=== PATIENT | female | born 1995 | race African-American/Black ===

== ENCOUNTER 2021-03-18 12:40 | Outpatient (RCR) | payer OTHER, SELFPAY ==
[2021-03-16] MEDS: RHO(D) IMMUNE GLOBULIN 300 MCG/2 ML SYRINGE IM (16:37)
== END 2021-06-14 23:59 | disposition home or self-care (01) ==
LOC: ANHLAB 12:40
PROVIDERS: PCP Family Medicine; Visit Provider Obstetrics & Gynecology
DX: Z29.13 Encounter for prophylactic Rho(D) immune globulin (principal); O36.0130 Maternal care for anti-D [Rh] antibodies, third trimester, not applicable or unspecified; O20.0 Threatened abortion; Z3A.00 Weeks of gestation of pregnancy not specified
CPT/HCPCS: 36415; 84702; 85461; 86850; 86880; 86900; 86901; 86902; 90384; 96372; J2790

== ENCOUNTER 2021-04-12 19:18 | Emergency (ER) | payer OTHER, SELFPAY ==
[2021-04-12 19:20] VITALS: BP 139/80; PULSE 121; RESP 18; TEMP 36.1; O2SAT 98
[2021-04-12 19:39] LABS: Basophils Percent Auto 0.8 % (0.2-1.2); Eosinophils Percent Auto 0.5 % (0-4.4); Hematocrit 35.9 % (37.0-47.0); Hemoglobin 12.4 g/dL (12.0-15.0); Immature Granulocyte Absolute 0.02 K/mm3 (0.00-0.031); Immature Granulocyte Percent A 0.5 % (0-0.5); Lymphocytes Absolute Auto 0.78 K/mm3 (0.9-3.2); Lymphocytes Percent Auto 21.4 % (18.3-44.2); Mean Corpuscular HGB Conc 34.5 g/dl (32-36); Mean Corpuscular Hemoglobin 31.3 pg (26-34); Mean Corpuscular Volume 90.7 fl (80-100); Monocytes Absolute Auto 0.3 K/mm3 (0.1-0.6); Monocytes Percent Auto 8.5 % (2.6-8.5); Neutrophils Absolute Auto 2.5 K/mm3 (1.3-6.7); Neutrophils Percent Auto 68.3 % (45.5-73.1); Platelet Count Result 191 k/mm3 (150-375); Red Blood Count 3.96 M/mm3 (4.2-5.4); Red Cell Distribution Width 13.8 % (11.5-14.5); White Blood Count 3.6 K/mm3 (4.5-10.0)
--- NOTE | 2021-04-12 19:46 | ED.GENADULT ---
HPI - General Adult General Chief complaint: Nausea/Vomiting/Diarrhea Stated complaint: , vomiting Time Seen by Provider: 04/12/21 19:31 Source: patient History of Present Illness HPI narrative: Patient is a 25 y/o female complaining of nausea and vomiting for last 4 weeks. She states that she is currently 9 week and she has been vomiting since when she was 5 week . She states that she vomited more than 10 times during the last 24 hours hours. She vomits up mostly yellowish and clear liquid. She was prescribed Reglan, Compazine, Zofran, Phenergan, etc and none of those seem to help. She also has mild epigastric abdominal pain. She has no lower abdominal pain or vaginal bleeding. She states that she had US in office recently and she was told that it was fine. Related Data Allergies Allergy/AdvReac Type Severity Reaction Status Date / Time No Known Allergies Allergy Verified 04/12/21 19:30 Review of Systems Constitutional: Constitutional: Denies chills, Denies fever(s), Denies headache(s) and Denies weakness Eyes: Eyes: Denies blurry vision ENT: Denies headache(s) and Denies neck pain Cardiovascular: Cardiovascular: Denies chest pain and Denies dyspnea Respiratory: Respiratory: Denies cough and Denies dyspnea Gastrointestinal: Gastrointestinal: Denies abdominal pain, Denies diarrhea, Reports nausea and Reports vomiting Genitourinary: Genitourinary: Denies hematuria and Denies dysuria Musculoskeletal: Musculoskeletal: Denies back pain and Denies neck pain Neurologic: Denies headache(s) and Denies weakness Exam Const: General: no acute distress and well developed Orientation/consciousness: oriented to person, oriented to place, oriented to time and patient oriented x3 HENMT: Head: normocephalic Ears: external ears normal General nose exam: Normal external nose present Eyes: General: appearance normal, both eyes and all related structures Conjunctivae: conjunctivae normal Neck: Neck: normal visual inspection and full ROM Chest: Chest palpation & inspection: normal inspection of the chest and no tenderness Resp: Effort & Inspection: normal respiratory effort Auscultation: clear to auscultation bilaterally Cardio: Rate: tachycardic Rhythm: regular rhythm GI: GI Palp: No abdominal tenderness and Yes Soft to palpation Skin: General skin exam: normal color and turgor normal Neuro: General: oriented to person, oriented to place, oriented to time and patient oriented x3 Cognition (Neuro): normal cognition Extrem: General: normal to inspection, full ROM and no pedal edema Psych: Appearance: grossly normal Mental Status: mental status grossly normal Affect: normal affect Course Reevaluation(s) Reevaluation #1: Patient feels better with no vomiting. Date: 04/12/21 Vital Signs Vital signs: Vital Signs Temperature 36.1 C L 04/12/21 19:20 Pulse Rate 121 H 04/12/21 19:20 Respiratory Rate 18 04/12/21 19:20 Blood Pressure 139/80 04/12/21 19:20 Pulse Oximetry 98 04/12/21 19:20 Temperature 36.1 C L 04/12/21 19:20 Pulse Rate 79 04/12/21 21:46 Respiratory Rate 16 04/12/21 21:46 Blood Pressure 122/67 04/12/21 21:46 Pulse Oximetry 100 04/12/21 21:46 Medical Decision Making Vital Signs Vital Signs: Vital Signs Temperature 36.1 C L 04/12/21 19:20 Pulse Rate 121 H 04/12/21 19:20 Respiratory Rate 18 04/12/21 19:20 Blood Pressure 139/80 04/12/21 19:20 Pulse Oximetry 98 04/12/21 19:20 Temperature 36.1 C L 04/12/21 19:20 Pulse Rate 79 04/12/21 21:46 Respiratory Rate 16 04/12/21 21:46 Blood Pressure 122/67 04/12/21 21:46 Pulse Oximetry 100 04/12/21 21:46 Lab Data Result diagrams: 04/12/21 19:33 04/12/21 19:33 Labs: Lab Results 04/12/21 04/12/21 04/12/21 Range/Units 19:33 19:33 19:40 WBC 3.6 L (4.5-10.0) K/mm3 RBC 3.96 L (4.2-5.4) M/mm3 Hgb 12.4 (12.0-15.0) g/dL Hct
[2021-04-12] MEDS: SODIUM CHLORIDE 0.9% IV 1,000 ML 999 ML IV CONT (19:49)
[2021-04-12] MEDS: METOCLOPRAMIDE HCL INJ 10 MG/2 ML VIAL IV PUSH (19:50)
[2021-04-12 19:52] LABS: Add Urine Microscopic? YES; Appearance Urine Cloudy (Clear); Bacteria Urine Trace /hpf; Bilirubin Urine 1+ (Negative); Color Urine Amber (Yellow); Glucose Urine UA Negative (Negative); Ketones Urine 2+ mg/dL (Negative); Leukocyte Esterase Ur 2+ LEU/UL (Negative); Mucus Urine Heavy /lpf; Nitrate Urine Negative (Negative); Protein Urine 2+ mg/dL (Negative); Squamous Epithelial Cell Urine Many /hpf (Few); WBC Urine 16-20 /hpf
[2021-04-12 19:54] VITALS: BP 121/55; PULSE 77
[2021-04-12 19:54] LABS: Alanine Aminotransferase 66 U/L (4-35); Albumin Level 4.6 g/dL (3.5-5.1); Alkaline Phosphatase 76 U/L (38-126); Anion Gap 13 mmol/L (8-16); Aspartate Amino Transferase 66 U/L (14-36); Bilirubin,Total 0.6 mg/dL (0.2-1.3); Blood Urea Nitrogen 5 mg/dL (7-17); Calcium 9.8 mg/dL (8.4-10.2); Carbon Dioxide 24 mmol/L (22-30); Chloride 102 mmol/L (98-107); Estimated CRCL calculation 177 ml/min; Estimated Glomerular Filt Rate > 60; Glucose 100 mg/dL (65-105); Lipase 48 U/L (23-300); Potassium 3.5 mmol/L (3.4-5.0); Sodium 139 mmol/L (137-145)
[2021-04-12 19:55] VITALS: BP 111/68; PULSE 61
[2021-04-12 19:57] VITALS: BP 105/79; PULSE 73
[2021-04-12 20:07] LABS: Blood Urine Negative (Negative); Specific Grav Ur 1.043 (1.001-1.035)
[2021-04-12 20:46] LABS: Amphetamine Screen Urine Negative (Negative); Barbiturate Screen Urine Negative (Negative); Benzodiazepines Screen Urine Negative (Negative); Cannabinoid Screen Urine Positive (Negative); Cocaine Screen Urine Negative (Negative); Methadone Screen Urine Negative (Negative); Opiate Screen Urine Negative (Negative); Phencyclidine Screen Urine Negative (Negative)
[2021-04-12 21:11] VITALS: BP 113/87; PULSE 84; RESP 18; O2SAT 100
[2021-04-12 21:46] VITALS: BP 122/67; PULSE 79; RESP 16; O2SAT 100
== END 2021-04-12 21:46 | disposition home or self-care (01) ==
PROVIDERS: Emergency Provider Emergency Medicine; PCP Family Medicine
DX: O21.0 Mild hyperemesis gravidarum (principal); Z3A.01 Less than 8 weeks gestation of pregnancy
CPT/HCPCS: 36415; 80053; 80307; 81001; 81025; 83690; 85025; 87086; 87088; 96361; 96374; 99284; J2765; J7030

== ENCOUNTER 2021-04-14 16:13 | Observation (INO) | payer OTHER, SELFPAY ==
[2021-04-14 16:46] VITALS: BP 110/48; PULSE 75
[2021-04-14] MEDS: DEXTROSE 5%/LACTATED RINGERS 1,000 ML 999 ML IV CONT (17:08)
[2021-04-14] MEDS: PROMETHAZINE HCL 25 MG/ML AMPUL 12.5 MG IV PUSH ×2 (17:08→21:06)
[2021-04-14] MEDS: PANTOPRAZOLE SODIUM IV 40 MG VIAL IV PUSH (18:28)
[2021-04-14] MEDS: DEXTROSE 5%/LACTATED RINGERS 1,000 ML 200 ML IV CONT ×2 (18:28→23:50)
[2021-04-14 18:31] VITALS: BP 120/60; PULSE 77
--- NOTE | 2021-04-14 18:35 | OBADM ---
This patient, Tristan Ferrari, admitted to the OB room OB Post 117 for observation. Patient/family oriented to hospital policies and general routines including ID bracelet, bed and alarms, visiting hours, pain management, procedures, bathroom and other care routines, personal items, smoking policy, room service/diet, and visiting hours. Patient/Family are encouraged to report perceived risks to care and to ask questions if they do not understand what they are told or what they should do.
[2021-04-14 19:07] VITALS: PULSE 76; O2SAT 97
[2021-04-14 19:09] VITALS: TEMP 37.1
[2021-04-14 19:10] VITALS: RESP 16
[2021-04-14 21:16] VITALS: BMI 38.5
[2021-04-14 22:40] VITALS: RESP 16
[2021-04-14] MEDS: ACETAMINOPHEN 500 MG TABLET 1000 MG PO (23:49)
[2021-04-15] VITALS (11 sets, daily range): BP systolic 102–117; BP diastolic 29–65; PULSE 69–98; RESP 16–18; TEMP 36.2–36.8; O2SAT 98–100
[2021-04-15] MEDS: PROMETHAZINE HCL 25 MG/ML AMPUL 12.5 MG IV PUSH ×4 (01:07→22:45)
[2021-04-15] MEDS: PANTOPRAZOLE SODIUM IV 40 MG VIAL IV PUSH ×2 (08:47→21:08)
[2021-04-15] MEDS: DEXTROSE 5%/LACTATED RINGERS 1,000 ML 200 ML IV CONT ×3 (10:57→23:48)
[2021-04-15] MEDS: ACETAMINOPHEN 500 MG TABLET 1000 MG PO (10:59)
--- NOTE | 2021-04-15 11:10 | PC.NURSE ---
Dr. Bustamante on unit and informed pt has had some cereal and juice today, nausea but no emesis. Discussed pt's last urine was still tea colored and getting D5LR at 200 ml/hr. Pt on Phenergan and Protonix.
--- NOTE | 2021-04-15 15:09 | PC.NURSE ---
Pt wanted to try ordering food. Initially she wanted tuna salad. Discussed food choices that would be good to try- applesauce, scrambled eggs, filipino toast, pancakes, grilled chicken, mashed potatoes. Pt wants to order a turkey sandwich. Informed pt to just nibble at it.
--- NOTE | 2021-04-15 16:11 | PM.IMHP ---
H&P: HPI History of Present Illness Date/Time: 04/15/21 16:11 Chief Complaint: pt here with complaints of nausea and vomiting at 9 weeks gestation , no hx of hyperemesis Review of Systems Review of Systems: All systems reviewed & are unremarkable except as noted in HPI and below Meds Home Medications and Allergies Allergies Allergy/AdvReac Type Severity Reaction Status Date / Time No Known Allergies Allergy Verified 04/12/21 19:30 Vital Signs Vital Signs - 24 hr 04/14/21 16:46 04/14/21 18:31 04/14/21 19:07 Temperature Pulse Rate 75 77 76 Respiratory Rate Blood Pressure 110/48 L 120/60 Pulse Oximetry 97 04/14/21 19:09 04/14/21 19:10 04/14/21 22:40 Temperature 37.1 C Pulse Rate Respiratory Rate 16 16 Blood Pressure Pulse Oximetry 04/15/21 08:31 04/15/21 08:32 04/15/21 11:03 Temperature Pulse Rate 72 72 81 Respiratory Rate Blood Pressure 107/52 L 105/49 L 106/49 L Pulse Oximetry 04/15/21 15:08 04/15/21 15:09 Temperature Pulse Rate 69 71 Respiratory Rate Blood Pressure 111/29 L 102/65 Pulse Oximetry Exam Const: General: cooperative Limitations: no limitations Psych: Affect: normal affect Attitude: cooperative Thought content: Yes Normal thought content present Assessment and Plan Additional Plan 1. hyperemesis continue to manage nausea/vomiting, labs drawn, plan discharge if able to tolerate po fluids
[2021-04-15] MEDS: ONDANSETRON INJ 4 MG/2 ML VIAL IV PUSH (16:55)
[2021-04-15 17:03] LABS: Basophils Percent Auto 0.8 % (0.2-1.2); Eosinophils Percent Auto 0.4 % (0-4.4); Hematocrit 30.7 % (37.0-47.0); Hemoglobin 10.4 g/dL (12.0-15.0); Immature Granulocyte Absolute 0.01 K/mm3 (0.00-0.031); Immature Granulocyte Percent A 0.4 % (0-0.5); Lymphocytes Absolute Auto 0.92 K/mm3 (0.9-3.2); Lymphocytes Percent Auto 38.2 % (18.3-44.2); Mean Corpuscular HGB Conc 33.9 g/dl (32-36); Mean Corpuscular Hemoglobin 30.7 pg (26-34); Mean Corpuscular Volume 90.6 fl (80-100); Mean Platelet Volume 10.9 fl (7.4-10.4); Monocytes Absolute Auto 0.5 K/mm3 (0.1-0.6); Monocytes Percent Auto 18.7 % (2.6-8.5); Neutrophils Percent Auto 41.5 % (45.5-73.1); Platelet Count Result 141 k/mm3 (150-375); Red Blood Count 3.39 M/mm3 (4.2-5.4); Red Cell Distribution Width 13.2 % (11.5-14.5); White Blood Count 2.4 K/mm3 (4.5-10.0)
[2021-04-15 17:12] LABS: Alanine Aminotransferase 56 U/L (4-35); Albumin Level 3.4 g/dL (3.5-5.1); Alkaline Phosphatase 60 U/L (38-126); Anion Gap 8 mmol/L (8-16); Aspartate Amino Transferase 58 U/L (14-36); Bilirubin,Total 0.3 mg/dL (0.2-1.3); Blood Urea Nitrogen 2 mg/dL (7-17); Carbon Dioxide 23 mmol/L (22-30); Chloride 108 mmol/L (98-107); Estimated CRCL calculation 206 ml/min; Estimated Glomerular Filt Rate > 60; Glucose 116 mg/dL (65-105); Potassium 3.4 mmol/L (3.4-5.0); Sodium 139 mmol/L (137-145)
--- NOTE | 2021-04-15 17:44 | PC.NURSE ---
Jhony Buckley CNM informed of CBC and CMP results. CNM wants pt to stay overnight and repeat labs in am.
--- NOTE | 2021-04-15 22:10 | PC.NURSE ---
2210 - pt requesting to get in the shower. IV saline locked and covered with plastic/taped down. Towels, gown, socks, and toiletries given. Pt will call out when finished.
--- NOTE | 2021-04-16 00:46 | PC.NURSE ---
2245 - pt requested and given 2 bowls of cheerios and milk.
--- NOTE | 2021-04-16 00:47 | PC.NURSE ---
2350 - pt states she has a slight headache, but declines pain medicine at this time. Pt states she is sleepy and will call out with any needs.
[2021-04-16] MEDS: DEXTROSE 5%/LACTATED RINGERS 1,000 ML 200 ML IV CONT (05:00)
[2021-04-16 05:02] VITALS: PULSE 82; O2SAT 100
[2021-04-16 05:04] VITALS: BP 109/41; PULSE 75
[2021-04-16 05:10] VITALS: RESP 18; TEMP 36.7
[2021-04-16 05:26] LABS: Basophils Percent Auto 0.9 % (0.2-1.2); Eosinophils Percent Auto 0.6 % (0-4.4); Hematocrit 27.6 % (37.0-47.0); Hemoglobin 9.4 g/dL (12.0-15.0); Immature Granulocyte Absolute 0.01 K/mm3 (0.00-0.031); Immature Granulocyte Percent A 0.3 % (0-0.5); Lymphocytes Absolute Auto 1.33 K/mm3 (0.9-3.2); Lymphocytes Percent Auto 42.1 % (18.3-44.2); Mean Corpuscular HGB Conc 34.1 g/dl (32-36); Mean Corpuscular Hemoglobin 32.2 pg (26-34); Mean Corpuscular Volume 94.5 fl (80-100); Mean Platelet Volume 10.9 fl (7.4-10.4); Monocytes Absolute Auto 0.7 K/mm3 (0.1-0.6); Monocytes Percent Auto 20.9 % (2.6-8.5); Neutrophils Absolute Auto 1.1 K/mm3 (1.3-6.7); Neutrophils Percent Auto 35.2 % (45.5-73.1); Platelet Count Result 143 k/mm3 (150-375); Red Blood Count 2.92 M/mm3 (4.2-5.4); Red Cell Distribution Width 14.4 % (11.5-14.5); White Blood Count 3.2 K/mm3 (4.5-10.0)
[2021-04-16 05:47] LABS: Alanine Aminotransferase 55 U/L (4-35); Albumin Level 3.1 g/dL (3.5-5.1); Alkaline Phosphatase 54 U/L (38-126); Anion Gap 7 mmol/L (8-16); Aspartate Amino Transferase 54 U/L (14-36); Bilirubin,Total 0.1 mg/dL (0.2-1.3); Blood Urea Nitrogen 2 mg/dL (7-17); Calcium 8.7 mg/dL (8.4-10.2); Carbon Dioxide 24 mmol/L (22-30); Chloride 106 mmol/L (98-107); Estimated CRCL calculation 170 ml/min; Estimated Glomerular Filt Rate > 60; Glucose 94 mg/dL (65-105); Potassium 3.6 mmol/L (3.4-5.0); Sodium 137 mmol/L (137-145)
[2021-04-16 07:06] VITALS: BP 106/40; PULSE 70
[2021-04-16] MEDS: ACETAMINOPHEN 500 MG TABLET 1000 MG PO (07:07)
[2021-04-16] MEDS: PROMETHAZINE HCL 25 MG/ML AMPUL 12.5 MG IV PUSH (07:16)
--- NOTE | 2021-04-16 07:57 | PM.OBPNLAB ---
Pain Control Date/time seen: 04/16/21 07:57 pt feeling better this am, elevated liver enzymes, stable VSS plan discharge home f/u one week in office
--- NOTE | 2021-04-16 08:07 | PM.OBTRLD ---
OB - Triage/Final Diagnosis Visit Information Date of evaluation: 04/15/21 Reason for evaluation: other (hyperemesis) Comments/Additional reasons for admission: I have assessed the risk for this patient, Tristan Ferrari, and determined that she would benefit from observation care. Evaluation Laboratory results: Laboratory Tests 04/15/21 04/15/21 04/16/21 16:53 16:53 05:08 WBC 2.4 L 3.2 L RBC 3.39 L 2.92 L Hgb 10.4 L 9.4 L Hct 30.7 L 27.6 L MCV 90.6 94.5 MCH 30.7 32.2 MCHC 33.9 34.1 RDW 13.2 14.4 Plt Count 141 L 143 L MPV 10.9 H 10.9 H Immature Gran % (Auto) 0.4 0.3 Neut % (Auto) 41.5 L 35.2 L Lymph % (Auto) 38.[address] [place] % (Auto) 18.7 H 20.9 H Eos % (Auto) 0.4 0.6 Baso % (Auto) 0.8 0.9 Lymph # (Auto) 0.[address] [place] # (Auto) 0.5 0.7 H Eos # (Auto) 0.0 0.0 Baso # (Auto) 0.0 0.0 Abs Immat Gran (auto) 0.01 0.01 Absolute Neuts (auto) 1.0 L 1.1 L Absolute Nucleated RBC 0.0 0.0 Nucleated RBC % 0.0 0.0 Sodium 139 Potassium 3.4 Chloride 108 H Carbon Dioxide 23 Anion Gap 8 BUN 2 L Creatinine 0.40 L Estim Creat Clear Calc 206 Estimated GFR > 60 Glucose 116 H Calcium 9.0 Total Bilirubin 0.3 AST 58 H ALT 56 H Alkaline Phosphatase 60 Total Protein 7.0 Albumin 3.4 L 04/16/21 05:08 WBC RBC Hgb Hct MCV MCH MCHC RDW Plt Count MPV Immature Gran % (Auto) Neut % (Auto) Lymph % (Auto) [place] % (Auto) Eos % (Auto) Baso % (Auto) Lymph # (Auto) [place] # (Auto) Eos # (Auto) Baso # (Auto) Abs Immat Gran (auto) Absolute Neuts (auto) Absolute Nucleated RBC Nucleated RBC % Sodium 137 Potassium 3.6 Chloride 106 Carbon Dioxide 24 Anion Gap 7 L BUN 2 L Creatinine 0.50 L Estim Creat Clear Calc 170 Estimated GFR > 60 Glucose 94 Calcium 8.7 Total Bilirubin 0.1 L AST 54 H ALT 55 H Alkaline Phosphatase 54 Total Protein 6.0 L Albumin 3.1 L Vital signs: Vital Signs - 24 hr 04/15/21 08:31 04/15/21 08:32 04/15/21 11:02 Temperature 36.2 C L 36.8 C Pulse Rate 72 72 81 Respiratory Rate 16 Blood Pressure 107/52 L 105/49 L 106/49 L Pulse Oximetry 04/15/21 11:03 04/15/21 15:08 04/15/21 15:09 Temperature 36.2 C L Pulse Rate 81 69 71 Respiratory Rate 16 Blood Pressure 106/49 L 111/29 L 102/65 Pulse Oximetry 04/15/21 20:25 04/15/21 20:26 04/15/21 20:27 Temperature 36.7 C Pulse Rate 97 95 95 Respiratory Rate 18 Blood Pressure 111/54 L 117/34 L 111/54 L Pulse Oximetry 100 99 04/15/21 23:44 04/15/21 23:48 04/16/21 05:02 Temperature 36.7 C Pulse Rate 85 Respiratory Rate 18 Blood Pressure 113/51 L Pulse Oximetry 98 100 04/16/21 05:04 04/16/21 05:10 04/16/21 07:06 Temperature 36.7 C Pulse Rate 75 70 Respiratory Rate 18 Blood Pressure 109/41 L 106/40 L Pulse Oximetry
== END 2021-04-16 10:55 | disposition home or self-care (01) ==
PROVIDERS: Advanced Practice Midwife; Admitting Provider Obstetrics & Gynecology; PCP Family Medicine; Visit Provider Obstetrics & Gynecology
DX: O21.0 Mild hyperemesis gravidarum (principal); Z3A.09 9 weeks gestation of pregnancy
CPT/HCPCS: 36415; 80053; 85025; 96361; 96374; 96375; 96376; A9270; C9113; G0378; G0379; J2405; J2550; J7121

== ENCOUNTER 2021-05-02 18:00 | Observation (INO) | payer OTHER, SELFPAY ==
[2021-05-02 18:18] VITALS: BP 109/54; PULSE 88
[2021-05-02 18:22] VITALS: BMI 39.2
--- NOTE | 2021-05-02 18:24 | OBADM ---
This patient, Tristan Ferrari, admitted to the OB room OB Post 116 for observation. Patient/family oriented to hospital policies and general routines including ID bracelet, bed and alarms, visiting hours, pain management, procedures, bathroom and other care routines, personal items, smoking policy, room service/diet, and visiting hours. Patient/Family are encouraged to report perceived risks to care and to ask questions if they do not understand what they are told or what they should do.
[2021-05-02 18:28] VITALS: TEMP 36.7
[2021-05-02] MEDS: LACTATED RINGERS 1,000 ML 999 ML IV CONT (19:04)
[2021-05-02] MEDS: PROMETHAZINE HCL 12.5 MG SUPP.RECT RECTAL ×2 (19:05→23:20)
[2021-05-02] MEDS: FAMOTIDINE 20 MG/2 ML VIAL IV PUSH (19:12)
[2021-05-02 19:36] LABS: Add Urine Microscopic? YES; Appearance Urine Cloudy (Clear); Bacteria Urine Trace /hpf; Bilirubin Urine Negative (Negative); Color Urine Amber (Yellow); Glucose Urine UA Negative (Negative); Ketones Urine Trace mg/dL (Negative); Leukocyte Esterase Ur Negative LEU/UL (Negative); Mucus Urine Heavy /lpf; Nitrate Urine Negative (Negative); Protein Urine 2+ mg/dL (Negative); Specific Grav Ur 1.027 (1.001-1.035); Squamous Epithelial Cell Urine Many /hpf (Few)
[2021-05-02 19:45] LABS: Blood Urine Negative (Negative)
[2021-05-02 19:49] VITALS: PULSE 88; RESP 18; TEMP 36.7; O2SAT 97
[2021-05-02 20:00] VITALS: RESP 18; TEMP 36.7
[2021-05-02] MEDS: ONDANSETRON INJ 4 MG/2 ML VIAL IV PUSH (22:10)
[2021-05-03 00:01] VITALS: RESP 18; TEMP 36.9
[2021-05-03] MEDS: ONDANSETRON INJ 4 MG/2 ML VIAL IV PUSH ×2 (02:03→05:45)
[2021-05-03 04:00] VITALS: RESP 16; TEMP 36.9
[2021-05-03 04:01] VITALS: BP 104/45; PULSE 80
[2021-05-03 07:30] VITALS: TEMP 36.8
[2021-05-03 07:32] VITALS: BP 120/66; PULSE 87
--- NOTE | 2021-05-03 07:45 | PC.NURSE ---
Addendum entered by Halie Bejarano RN 05/03/21 08:21: Orders to discharge patient due to nausea subsiding. Patient will keep office appointment this week to discuss further treatment if needed. Original Note: COLLINS Esparza with patient this morning.
--- NOTE | 2021-05-03 07:50 | WPDOBADMIT ---
Obstetrics - Admit Note Admission Note: 25 y/o @ 12w3d here with nausea and vomiting in . record reviewed. No pertinent additions to the history and/or any subsequent changes in the physical findings that are not consistent with the expected course of the were found. Additions to the history and/or subsequent changes in the physical findings follow. None.
--- NOTE | 2021-05-03 07:51 | PM.OBPNLAB ---
Pain Control Date/time seen: 05/03/21 07:51 Improvement of symptoms with phenergan suppository and zofran. Pt has been able to hold down liquids and solids this am and desires discharge to home. Will send rx for phenergan. Pt already has zofran. Plan to follow up in the office this week.
== END 2021-05-03 08:19 | disposition home or self-care (01) ==
PROVIDERS: Advanced Practice Midwife; Admitting Provider Obstetrics & Gynecology; PCP Family Medicine; Visit Provider Obstetrics & Gynecology
DX: O21.0 Mild hyperemesis gravidarum (principal); Z3A.12 12 weeks gestation of pregnancy
CPT/HCPCS: 81001; 87086; 96361; 96374; 96375; 96376; A9270; G0378; G0379; J2405; J7120

== ENCOUNTER 2021-05-19 18:24 | Observation (INO) | payer OTHER, SELFPAY ==
[2021-05-19 19:00] VITALS: RESP 18; TEMP 36.4
[2021-05-19] MEDS: DEXTROSE 5%/LACTATED RINGERS 1,000 ML 999 ML IV CONT (19:04)
[2021-05-19] MEDS: ONDANSETRON INJ 4 MG/2 ML VIAL 8 MG IV PUSH (19:04)
[2021-05-19 19:09] LABS: Basophils Percent Auto 0.6 % (0.2-1.2); Eosinophils Percent Auto 0.3 % (0-4.4); Hematocrit 30.1 % (37.0-47.0); Hemoglobin 10.8 g/dL (12.0-15.0); Immature Granulocyte Absolute 0.03 K/mm3 (0.00-0.031); Immature Granulocyte Percent A 0.5 % (0-0.5); Lymphocytes Absolute Auto 1.44 K/mm3 (0.9-3.2); Lymphocytes Percent Auto 21.7 % (18.3-44.2); Mean Corpuscular HGB Conc 35.9 g/dl (32-36); Mean Corpuscular Hemoglobin 32.6 pg (26-34); Mean Corpuscular Volume 90.9 fl (80-100); Mean Platelet Volume 11.3 fl (7.4-10.4); Monocytes Absolute Auto 0.6 K/mm3 (0.1-0.6); Monocytes Percent Auto 8.9 % (2.6-8.5); Neutrophils Absolute Auto 4.5 K/mm3 (1.3-6.7); Platelet Count Result 229 k/mm3 (150-375); Red Blood Count 3.31 M/mm3 (4.2-5.4); Red Cell Distribution Width 14.3 % (11.5-14.5); White Blood Count 6.6 K/mm3 (4.5-10.0)
[2021-05-19 19:11] VITALS: BP 113/42; PULSE 80
[2021-05-19 19:13] VITALS: BP 96/60; PULSE 80
[2021-05-19 19:15] LABS: Alanine Aminotransferase 27 U/L (4-35); Albumin Level 4.1 g/dL (3.5-5.1); Alkaline Phosphatase 71 U/L (38-126); Anion Gap 10 mmol/L (8-16); Aspartate Amino Transferase 33 U/L (14-36); Bilirubin,Total 0.3 mg/dL (0.2-1.3); Blood Urea Nitrogen 7 mg/dL (7-17); Calcium 9.6 mg/dL (8.4-10.2); Carbon Dioxide 20 mmol/L (22-30); Chloride 105 mmol/L (98-107); Estimated Glomerular Filt Rate > 60; Glucose 101 mg/dL (65-105); Potassium 3.7 mmol/L (3.4-5.0); Sodium 135 mmol/L (137-145)
[2021-05-19 20:23] VITALS: BMI 37.2
--- NOTE | 2021-05-19 20:53 | PC.NURSE ---
2035 - IV line d/c. [facility]
--- NOTE | 2021-05-19 20:58 | PC.NURSE ---
2039 - pt states she is feeling much better, but states she has a headache. Pt refusing medication, and second bag of D5LR. pt states she wants to go home and lay down. Pt tearful and states she is ready to feel better, just wants to eat food. Pt states she feeling down, but has a good support system at home. Pt educated on our resources, declines needing any assistance at this time. Pt states she is not taking her nausea medication as prescribed, does not like the side effects they give her. Pt encouraged to call Dr Bustamante in the morning to discuss possible medication options.
--- NOTE | 2021-05-19 21:06 | PC.NURSE ---
1944 - pt states she is already feeling a little better, and would like broth & crackers
--- NOTE | 2021-05-19 21:07 | PC.NURSE ---
1954 - hot tea and crackers given. pt eating well.
--- NOTE | 2021-06-13 19:35 | P.PNOB_ITS ---
OB - Triage/Final Diagnosis Visit Information Comments/Additional reasons for admission: I have assessed the risk for this patient, Tristan Ferrari, and determined that she would benefit from observation care. Evaluation Laboratory results: Laboratory Tests 05/19/21 05/19/21 18:57 18:57 WBC 6.6 RBC 3.31 L Hgb 10.8 L Hct 30.1 L MCV 90.9 MCH 32.6 MCHC 35.9 RDW 14.3 Plt Count 229 D MPV 11.3 H Immature Gran % (Auto) 0.5 Neut % (Auto) 68.0 Lymph % (Auto) 21.7 [place] % (Auto) 8.9 H Eos % (Auto) 0.3 Baso % (Auto) 0.6 Lymph # (Auto) 1.44 [place] # (Auto) 0.6 Eos # (Auto) 0.0 Baso # (Auto) 0.0 Abs Immat Gran (auto) 0.03 Absolute Neuts (auto) 4.5 Absolute Nucleated RBC 0.0 Nucleated RBC % 0.0 Sodium 135 L Potassium 3.7 Chloride 105 Carbon Dioxide 20 L Anion Gap 10 BUN 7 D Creatinine 0.40 L Estim Creat Clear Calc Not Reportable Estimated GFR > 60 Glucose 101 Calcium 9.6 Total Bilirubin 0.3 AST 33 ALT 27 Alkaline Phosphatase 71 Total Protein 8.0 Albumin 4.1 Final Diagnosis (1) Nausea/vomiting in : Code(s): O21.9 - Vomiting of , unspecified Status: Acute
== END 2021-05-19 20:50 | disposition home or self-care (01) ==
PROVIDERS: Admitting Provider Obstetrics & Gynecology; PCP Family Medicine; Visit Provider Obstetrics & Gynecology
DX: O21.9 Vomiting of pregnancy, unspecified (principal); Z3A.14 14 weeks gestation of pregnancy
CPT/HCPCS: 36415; 80053; 85025; 96374; G0378; G0379; J2405; J7121

== ENCOUNTER 2021-06-02 07:41 | Outpatient (CLI) | payer OTHER, SELFPAY ==
[2021-06-02 08:00] VITALS: BMI 37.5
[2021-06-02 08:05] VITALS: BP 126/75; PULSE 90; RESP 14; TEMP 36.7; O2SAT 97
--- NOTE | 2021-06-02 09:12 | PC.NURSE ---
0755 Patient ambulatory with steady gait to treatment room for o/p picc line insertion due to hyperemesis. Patient is A & O x3.
--- NOTE | 2021-06-02 09:29 | PC.NURSE ---
0905 Patient discharged ambulatory without complaints after left basilic picc line insertion.
== END 2021-06-02 07:42 | disposition home or self-care (01) ==
LOC: ANHVASCINF 07:43
PROVIDERS: PCP Family Medicine; Visit Provider Obstetrics & Gynecology
DX: D21.0 Benign neoplasm of connective and other soft tissue of head, face and neck (principal)
CPT/HCPCS: 36569; C1751

== ENCOUNTER 2021-06-02 18:55 | Emergency (ER) | payer OTHER, SELFPAY ==
--- NOTE | 2021-06-02 19:14 | PC.NURSE ---
pt up to desk stating she will just wait to see Dr. Bustamante and my home health nurse tomorrow
== END 2021-06-02 19:31 | disposition left against medical advice (07) ==
LOC: ANHED 19:26
DX: Z53.21 Procedure and treatment not carried out due to patient leaving prior to being seen by health care provider (principal)
CPT/HCPCS: 99199

== ENCOUNTER 2021-06-03 22:52 | Observation (INO) | payer OTHER, SELFPAY ==
[2021-06-03 23:03] VITALS: BMI 38.3
[2021-06-03 23:09] VITALS: RESP 20; TEMP 36.6
[2021-06-03 23:15] VITALS: BP 119/65; PULSE 80
--- NOTE | 2021-06-03 23:21 | PC.NURSE ---
pt states she has had hyperemesis since 6 weeks, n/v worse today. pt states she has not felt movements for past 2 days. pt was seen in office today by dr. stephens. pt denies bleeding or leaking fluid.
--- NOTE | 2021-06-03 23:23 | PC.NURSE ---
pt has PICC line in left upper arm that was placed on 06/02/21.
[2021-06-04] MEDS: DEXTROSE 5%/LACTATED RINGERS 1,000 ML 150 ML IV CONT ×3 (00:19→13:09)
[2021-06-04] MEDS: ONDANSETRON INJ 4 MG/2 ML VIAL 8 MG IV PUSH (00:21)
[2021-06-04] MEDS: FAMOTIDINE 20 MG/2 ML VIAL IV PUSH (00:21)
[2021-06-04] MEDS: ACETAMINOPHEN 500 MG TABLET 1000 MG PO ×2 (03:57→13:05)
[2021-06-04 10:00] VITALS: TEMP 37.3
[2021-06-04 10:56] VITALS: BP 123/63; PULSE 91
[2021-06-04 11:01] VITALS: BP 104/47; PULSE 77
[2021-06-04 11:15] VITALS: BP 99/60; PULSE 73
[2021-06-04] MEDS: ONDANSETRON HCL ODT 4 MG TABLET PO (11:28)
[2021-06-04] MEDS: PANTOPRAZOLE 40 MG TABLET PO (11:47)
--- NOTE | 2021-06-04 12:00 | PC.NURSE ---
Patient states that she is feeling a little better. Tolerated chicken noodle soup, no vomiting.
--- NOTE | 2021-06-04 12:30 | PC.NURSE ---
Patient wanting a 3rd bag of fluid before she goes home. OK per Dr Bustamante.
--- NOTE | 2021-06-04 13:02 | PM.IMHP ---
H&P: HPI History of Present Illness Date/Time: 06/04/21 13:02 This patient is a 25-year-old multiparous female at 17 weeks gestation who presents for nausea vomiting of . She has hyperemesis gravidarum. She has a PICC line. She was not keeping fluids down for a couple of days and presented to Labor and delivery. We have been supporting her with fluids, antiemetics, and anything that she is able to take p.o.. She denies any cramping or vaginal bleeding. She denies any chest pain or shortness of breath. She denies any headaches or blurry vision. She denies any fevers or chills. Chief Complaint: Nausea and vomiting Review of Systems Constitutional: Constitutional: Reports no additional constitutional complaints, Denies fatigue, Denies headache(s), Denies lethargy and Denies weakness Eyes: Eyes: Reports no additional eye complaints, Denies blurry vision and Denies photophobia ENT: Reports as per HPI, Denies headache(s) and Denies neck pain Cardiovascular: Cardiovascular: Denies chest pain, Denies diaphoresis, Denies leg edema, Denies palpitations and Denies dyspnea Respiratory: Respiratory: Denies hemoptysis, Denies dyspnea and Denies wheezing Gastrointestinal: Gastrointestinal: Denies abdominal pain, Denies melena, Denies bloating, Denies hematochezia, Denies nausea and Denies vomiting Genitourinary: Genitourinary: Reports no additional female genitourinary complaints Musculoskeletal: Musculoskeletal: Denies joint swelling, Denies neck pain, Denies numbness and Denies stiffness Neurologic: Denies Abnormal speech present, Denies confusion, Denies headache(s), Denies numbness and Denies weakness Psychiatric: Psychiatric: Denies anxiety, Denies confusion, Denies depression, Denies homicidal ideation and Denies suicidal ideation Endocrine: Endocrine: Denies fatigue and Denies palpitations Allergic/Immunologic: Allergic/Immunologic: Denies wheezing Meds Home Medications and Allergies Home Medications Medication Instructions Recorded Confirmed Type PNV cmb#95-ferrous fumarate-FA 1 tablet PO DAILY 04/16/21 06/04/21 History [] albuterol sulfate [ProAir HFA] 90 mcg INHALATION PRN PRN 05/02/21 06/04/21 History famotidine [Pepcid AC] 10 mg PO DAILY 05/02/21 06/04/21 History Allergies Allergy/AdvReac Type Severity Reaction Status Date / Time No Known Allergies Allergy Verified 04/12/21 19:30 Vital Signs Vital Signs - 24 hr 06/03/21 23:09 06/03/21 23:15 06/04/21 10:56 Temperature 97.8 F Pulse Rate 80 91 Respiratory Rate 20 Blood Pressure 119/65 123/63 06/04/21 11:01 06/04/21 11:15 Temperature Pulse Rate 77 73 Respiratory Rate Blood Pressure 104/47 L 99/60 L Exam Const: General: healthy appearing, comfortable and no acute distress; No confusion Orientation/consciousness: No confusion Eyes: Direct Ophthalmoscopy: No photophobia Resp: Auscultation: clear to auscultation bilaterally, no rales, no rhonchi and no wheezes Cardio: Rate: regular rate Heart sounds: no click, no murmurs and no rubs GI: Inspection: non-distended GI Palp: No abdominal tenderness Auscultation: normal bowel sounds Neuro: General: No confusion Speech: No Abnormal speech present Extrem: General: normal to inspection, no pedal edema and no calf tenderness Assessment and Plan Assessment and plan (1) Second trimester : Code(s): Z34.92 - Encounter for supervision of normal , unspecified, second trimester Status: Acute (2) Hyperemesis: Code(s): R11.10 - Vomiting, unspecified Status: Acute Assessment and Plan: this patient is a 25 multiparous female at 17 weeks gestation with hyperemesis. She is admitted for intolerance of oral fluids. she is receiving IV fluids. She has a PICC line. She has began to tolerate some p.o. intake. We resumed her Proton pump niharika. She may be discharged shortly.
--- NOTE | 2021-06-04 16:15 | PC.NURSE ---
Patient ready to go home, states that she is only slightly nauseated. Patient has home health coming on Sunday for fluids and medication planning.
--- NOTE | 2021-06-04 16:30 | PC.NURSE ---
FHT's 135 per Doppler
== END 2021-06-04 16:42 | disposition home or self-care (01) ==
PROVIDERS: Admitting Provider Obstetrics & Gynecology; Visit Provider Obstetrics & Gynecology
DX: O21.0 Mild hyperemesis gravidarum (principal); Z3A.17 17 weeks gestation of pregnancy
CPT/HCPCS: 96361; 96374; 96375; A9270; G0378; G0379; J2405; J7121

== ENCOUNTER 2021-06-11 16:12 | Emergency (ER) | payer OTHER, SELFPAY ==
[2021-06-11 16:14] VITALS: BP 137/72; PULSE 105; RESP 20; TEMP 36.6; O2SAT 99
--- NOTE | 2021-06-11 17:43 | ECG_ITS ---
Measurements Intervals [place] Rate: 87 P: 55 MA: 149 QRS: 42 QRSD: 89 T: 42 QT: 372 QTc: 448 Interpretive Statements SINUS RHYTHM NORMAL ECG Electronically Signed On 06-11-2021 18:54:38 CDT by Didier Cuevas D.O.
--- NOTE | 2021-06-11 17:43 | ED.GENADULT ---
HPI - General Adult General Chief complaint: Unspecified Stated complaint: PICC LINE COMPLICATIONS Time Seen by Provider: 06/11/21 16:38 Source: patient Mode of arrival: ambulatory Limitations: no limitations History of Present Illness HPI narrative: Patient presents for evaluation of small amount of bleeding which is now controlled around the insertion site of her pack. She indicates she has a history of hyperemesis gravidarum for which she had PICC line placed. She states she has been able to tolerate oral intake and is hoping her PICC can be discontinued. She states her daughter slightly pulled out on her PICC line yesterday accidentally. PICC line dressing was in place. No significant amount of catheter was extracted from the insertion site. She states she has a history of migraines and has experienced a headache throughout most of her . She states headache is currently present, in the frontal region, described as splitting and rate 8/10 in severity. She has taken tylenol and fioricet for headaches but declines a desire to take any medication at this time. She reports some left-sided chest pressure for last 3 days which has been intermittent, not particularly bothersome, rated 4-10 in severity, which she attributes to indigestion. She has also recently experienced palpitations. Symptoms have been intermittent over the last three days, occurring approximately 2-3 times per day lasting a few minutes at a time. She denies any shortness of breath/cough. . Currently 18 weeks gestation, under care of Dr Bustamante. She has had confirmed IUP per US during this . She is currently on PPI for GERD. Related Data Home Medications Medication Instructions Recorded Confirmed PNV cmb#95-ferrous fumarate-FA 1 tablet PO DAILY 04/16/21 06/04/21 [] albuterol sulfate [ProAir HFA] 90 mcg INHALATION PRN PRN 05/02/21 06/04/21 famotidine [Pepcid AC] 10 mg PO DAILY 05/02/21 06/04/21 Allergies Allergy/AdvReac Type Severity Reaction Status Date / Time No Known Allergies Allergy Verified 04/12/21 19:30 Review of Systems Review of Systems: CONSTITUTIONAL: Denies fever, chills, or sweats. EYES: Denies visual changes, redness, or discharge. ENT: Denies rhinorrhea, congestion, sore throat, or otalgia. CARDIOVASCULAR: Reports palpitations over the last 3 days. Reports some left sided chest pressure. Denies edema. RESPIRATORY: Denies cough or dyspnea. GASTROINTESTINAL: Denies abdominal pain, nausea, vomiting, or diarrhea. GENITOURINARY: Denies dysuria or hematuria. SKIN: Reports a small amount of dried blood around the insertion site of her PICC line. Denies rash or itching. MUSCULOSKELETAL: Denies back pain, joint pain, or myalgia. NEUROLOGIC: Reports headache. Denies numbness, dizziness, or weakness. PSYCHIATRIC: Denies anxiety or depression. [facility] Past Medical History Medical History (Updated 06/11/21 @ 19:22 by Otilio Izquierdo, [employer], ) Hyperemesis gravidarum Surgical History Surgical History No pertinent past surgical history Family History Family History Mother No pertinent past medical history Social History Social History Smoking status: Never smoker Substance use: never Gender identity (if verbalized by the patient): Female Sexual Orientation (if Verbalized by the Patient): Straight or Heterosexual Spiritual care concerns: No Exam Narrative: GENERAL: Well-appearing, well-nourished, and in no acute distress. HEAD: Normocephalic, atraumatic. EYES: PERRLA and EOMI. ENT: Nares clear, no rhinorrhea or epistaxis. Mucous membranes moist. Oropharynx without tonsillar hypertrophy exudate or other lesions. Bilateral TMs pearly henriquez nonbulging NECK: Supple. No adenopathy or masses. No carotid bruits or JVD CHES
[2021-06-11] MEDS: FAMOTIDINE 20 MG TABLET PO (18:05)
[2021-06-11 18:29] LABS: Basophils Percent Auto 0.3 % (0.2-1.2); Eosinophils Percent Auto 0.5 % (0-4.4); Hematocrit 28.4 % (37.0-47.0); Hemoglobin 10.3 g/dL (12.0-15.0); Immature Granulocyte Absolute 0.03 K/mm3 (0.00-0.031); Immature Granulocyte Percent A 0.5 % (0-0.5); Lymphocytes Absolute Auto 1.16 K/mm3 (0.9-3.2); Lymphocytes Percent Auto 19.4 % (18.3-44.2); Mean Corpuscular HGB Conc 36.3 g/dl (32-36); Mean Corpuscular Hemoglobin 33.6 pg (26-34); Mean Corpuscular Volume 92.5 fl (80-100); Mean Platelet Volume 11.8 fl (7.4-10.4); Monocytes Absolute Auto 0.5 K/mm3 (0.1-0.6); Neutrophils Absolute Auto 4.2 K/mm3 (1.3-6.7); Neutrophils Percent Auto 70.3 % (45.5-73.1); Platelet Count Result 226 k/mm3 (150-375); Red Blood Count 3.07 M/mm3 (4.2-5.4)
[2021-06-11 18:42] LABS: Alanine Aminotransferase 23 U/L (4-35); Albumin Level 3.8 g/dL (3.5-5.1); Alkaline Phosphatase 73 U/L (38-126); Anion Gap 9 mmol/L (8-16); Aspartate Amino Transferase 28 U/L (14-36); Bilirubin,Total 0.5 mg/dL (0.2-1.3); Blood Urea Nitrogen 8 mg/dL (7-17); Calcium 8.6 mg/dL (8.4-10.2); Carbon Dioxide 20 mmol/L (22-30); Chloride 107 mmol/L (98-107); Estimated CRCL calculation 202 ml/min; Estimated Glomerular Filt Rate > 60; Glucose 89 mg/dL (65-110); Magnesium 1.8 mg/dL (1.6-2.3); Potassium 4.2 mmol/L (3.4-5.0); Sodium 136 mmol/L (137-145)
[2021-06-11 18:53] LABS: Troponin I < 0.012 ng/mL (0.000-0.034)
== END 2021-06-11 19:38 | disposition home or self-care (01) ==
PROVIDERS: Emergency Provider Nurse Practitioner; PCP Family Medicine
DX: O26.892 Other specified pregnancy related conditions, second trimester (principal); Z95.828 Presence of other vascular implants and grafts; R07.89 Other chest pain; R00.2 Palpitations; R51.9 Headache, unspecified; O21.0 Mild hyperemesis gravidarum; O99.612 Diseases of the digestive system complicating pregnancy, second trimester; K21.9 Gastro-esophageal reflux disease without esophagitis; Z3A.18 18 weeks gestation of pregnancy
CPT/HCPCS: 36415; 80053; 83735; 84484; 85025; 93005; 99284; A9270

== ENCOUNTER 2021-06-22 11:09 | Observation (INO) | payer OTHER, SELFPAY ==
[2021-06-22 11:09] VITALS: BMI 39.3
--- NOTE | 2021-06-22 11:10 | OBADM ---
This patient, Tristan Ferrari, admitted to the OB room OB Post 113 for observation. Patient/family oriented to hospital policies and general routines including ID bracelet, bed and alarms, visiting hours, pain management, procedures, bathroom and other care routines, personal items, smoking policy, room service/diet, and visiting hours. Patient/Family are encouraged to report perceived risks to care and to ask questions if they do not understand what they are told or what they should do.
[2021-06-22] MEDS: ONDANSETRON INJ 4 MG/2 ML VIAL 8 MG IV PUSH (12:19)
[2021-06-22] MEDS: DEXTROSE 5%/LACTATED RINGERS 1,000 ML 999 ML IV CONT (12:19)
[2021-06-22 12:33] LABS: Hematocrit 28.5 % (37.0-47.0); Hemoglobin 9.6 g/dL (12.0-15.0); Mean Corpuscular HGB Conc 33.7 g/dl (32-36); Mean Corpuscular Hemoglobin 31.4 pg (26-34); Mean Corpuscular Volume 93.1 fl (80-100); Mean Platelet Volume 11.4 fl (7.4-10.4); Platelet Count Result 173 k/mm3 (150-375); Red Blood Count 3.06 M/mm3 (4.2-5.4); Red Cell Distribution Width 14.1 % (11.5-14.5); White Blood Count 7.3 K/mm3 (4.5-10.0)
[2021-06-22 12:42] LABS: Add Urine Microscopic? YES; Appearance Urine Cloudy (Clear); Bacteria Urine Trace /hpf; Bilirubin Urine Negative (Negative); Blood Urine Negative (Negative); Color Urine Amber (Yellow); Glucose Urine UA Negative (Negative); Ketones Urine Negative (Negative); Leukocyte Esterase Ur Trace LEU/UL (NEGATIVE); Mucus Urine Heavy /lpf; Nitrate Urine Negative (Negative); Protein Urine 1+ mg/dL (Negative); Specific Grav Ur 1.027 (1.001-1.035); Squamous Epithelial Cell Urine Moderate /hpf (Few)
[2021-06-22 12:48] LABS: Alanine Aminotransferase 16 U/L (4-35); Albumin Level 3.7 g/dL (3.5-5.1); Alkaline Phosphatase 70 U/L (38-126); Anion Gap 6 mmol/L (8-16); Aspartate Amino Transferase 23 U/L (14-36); Bilirubin,Total 0.3 mg/dL (0.2-1.3); Blood Urea Nitrogen 6 mg/dL (7-17); Calcium 9.2 mg/dL (8.4-10.2); Carbon Dioxide 23 mmol/L (22-30); Chloride 103 mmol/L (98-107); Estimated Glomerular Filt Rate > 60; Glucose 101 mg/dL (65-110); Potassium 3.3 mmol/L (3.4-5.0); Sodium 132 mmol/L (137-145)
[2021-06-22] MEDS: DEXTROSE 5%/LACTATED RINGERS 1,000 ML 200 ML IV CONT (14:21)
--- NOTE | 2021-06-24 07:09 | PM.OBTRLD ---
OB - Triage/Final Diagnosis Visit Information Date of evaluation: 06/22/21 Reason for evaluation: threatened labor and other (nausea and vomiting) Comments/Additional reasons for admission: I have assessed the risk for this patient, Tristan Ferrari, and determined that she would benefit from observation care. Evaluation Laboratory results: Laboratory Tests 06/22/21 06/22/21 06/22/21 12:21 12:21 12:21 WBC 7.3 RBC 3.06 L Hgb 9.6 L Hct 28.5 L MCV 93.1 MCH 31.4 MCHC 33.7 RDW 14.1 Plt Count 173 MPV 11.4 H Sodium 132 L Potassium 3.3 L Chloride 103 Carbon Dioxide 23 Anion Gap 6 L BUN 6 L Creatinine 0.40 L Estim Creat Clear Calc Not Reportable Estimated GFR > 60 Glucose 101 Calcium 9.2 Total Bilirubin 0.3 AST 23 ALT 16 Alkaline Phosphatase 70 Total Protein 7.0 Albumin 3.7 Urine Color [place] Urine Appearance Cloudy H Urine pH 6.0 Ur Specific [place] 1.027 Urine Protein 1+ H Urine Glucose (UA) Negative Urine Ketones Negative Ur Blood (Man) Negative Urine Nitrate Negative Urine Bilirubin Negative Urine Urobilinogen 4.0 H Ur Leukocyte Esterase Trace H Urine RBC 3-5 H Urine WBC 7-9 H Ur Squamous Epith Cells Moderate H Urine Bacteria Trace Urine Mucus Heavy H
== END 2021-06-22 18:35 | disposition home or self-care (01) ==
PROVIDERS: Admitting Provider Obstetrics & Gynecology; PCP Family Medicine; Visit Provider Obstetrics & Gynecology
DX: O47.9 False labor, unspecified (principal); O21.9 Vomiting of pregnancy, unspecified; Z3A.00 Weeks of gestation of pregnancy not specified
CPT/HCPCS: 36415; 80053; 81001; 85027; 96374; G0378; G0379; J2405; J7121

== ENCOUNTER 2021-08-09 11:11 | Outpatient (RCR) | payer OTHER, SELFPAY ==
[2021-08-09 13:15] LABS: Hematocrit 29.3 % (37.0-47.0); Hemoglobin 10.4 g/dL (12.0-15.0)
[2021-08-09 14:03] LABS: Glucose 1 Hour PP 50gm Dose 119 mg/dL
[2021-08-09 14:41] LABS: HIV 1/2 Ab P24 Ag Result Negative (Negative)
[2021-08-10 13:50] LABS: Rapid Plasma Reagin Non-Reactive (NonReactive)
[2021-08-11] MEDS: RHO(D) IMMUNE GLOBULIN 300 MCG/2 ML SYRINGE IM (17:02)
== END 2021-11-07 23:59 | disposition home or self-care (01) ==
LOC: ANHLAB 11:11
PROVIDERS: PCP Family Medicine; Visit Provider Obstetrics & Gynecology
DX: Z11.4 Encounter for screening for human immunodeficiency virus [HIV] (principal); Z29.13 Encounter for prophylactic Rho(D) immune globulin; O36.0190 Maternal care for anti-D [Rh] antibodies, unspecified trimester, not applicable or unspecified; Z3A.00 Weeks of gestation of pregnancy not specified
CPT/HCPCS: 36415; 82947; 85014; 85018; 85461; 86592; 86703; 90384; 96372; G0432; J2790

== ENCOUNTER 2021-09-13 11:18 | Observation (INO) | payer OTHER, SELFPAY ==
[2021-09-13 11:49] VITALS: BP 114/58; PULSE 95
[2021-09-13 12:30] VITALS: TEMP 36.9
[2021-09-13 13:21] VITALS: BMI 39.6
--- NOTE | 2021-09-13 13:25 | OBADM ---
This patient, Tristan Ferrari, admitted to the OB room [facility] Post [facility] for observation. Patient/family oriented to hospital policies and general routines including ID bracelet, bed and alarms, visiting hours, pain management, procedures, bathroom and other care routines, personal items, smoking policy, room service/diet, and visiting hours. Patient/Family are encouraged to report perceived risks to care and to ask questions if they do not understand what they are told or what they should do.
--- NOTE | 2021-09-13 13:33 | PC.NURSE ---
Addendum entered by Barbara Casey RN 09/13/21 15:12: aware of ROM plus negative results and reactive NST with no contractions noted. Original Note: [id number]- called,informed pt came in stating she had a gush of fluid after breaking up a dog fight and landing on her bottom and her dog rolling over on her. Pt declines hitting her abdomen or falling on her abdomen. Pt's blood type is O-, KB ordered. Pt can be discharge after blood draw and the office will f/u with her if the results are positive.
--- NOTE | 2021-09-16 07:48 | PM.OBTRLD ---
OB - Triage/Final Diagnosis Visit Information Comments/Additional reasons for admission: I have assessed the risk for this patient, Tristan Ferrari, and determined that she would benefit from observation care. Evaluation Laboratory results: Laboratory Tests 09/13/21 13:51 KB Hemoglobin Negative Final Diagnosis (1) Blunt abdominal trauma: Code(s): S39.91XA - Unspecified injury of abdomen, initial encounter Status: Acute (2) Second trimester : Code(s): Z34.92 - Encounter for supervision of normal , unspecified, second trimester Status: Acute
== END 2021-09-13 14:05 | disposition home or self-care (01) ==
PROVIDERS: Admitting Provider Obstetrics & Gynecology; PCP Family Medicine; Visit Provider Obstetrics & Gynecology
DX: O99.891 Other specified diseases and conditions complicating pregnancy (principal); S39.81XA Other specified injuries of abdomen, initial encounter; Z3A.31 31 weeks gestation of pregnancy; X58.XXXA Exposure to other specified factors, initial encounter
CPT/HCPCS: 36415; 84112; 85460; G0378; G0379

== ENCOUNTER 2021-10-25 01:12 | Observation (INO) | payer OTHER, SELFPAY ==
[2021-10-25 02:53] VITALS: BMI 36.6
--- NOTE | 2021-11-10 07:47 | PM.OBTRLD ---
OB - Triage/Final Diagnosis Visit Information Comments/Additional reasons for admission: I have assessed the risk for this patient, Tristan Ferrari, and determined that she would benefit from observation care. Final Diagnosis (1) False labor: Code(s): O47.9 - False labor, unspecified Status: Acute
== END 2021-10-25 03:24 | disposition home or self-care (01) ==
PROVIDERS: Admitting Provider Obstetrics & Gynecology; PCP Family Medicine; Visit Provider Obstetrics & Gynecology
DX: O47.1 False labor at or after 37 completed weeks of gestation (principal); Z3A.37 37 weeks gestation of pregnancy
CPT/HCPCS: G0378; G0379

== ENCOUNTER 2021-11-02 19:40 | Outpatient (CLI) | payer OTHER, SELFPAY ==
--- NOTE | 2021-11-02 21:00 | PC.NURSE ---
2027- called Vilma- informed that pt came in c/o leaking of fluid. feeling come contractions but that they were spaced out. ROM plus-negative. FHT reviewed with a reactive tracing. pt wanting to be induced prior to 39 weeks and pt informed that unfortunately we cannot induce prior to 39 weeks. pt to bounce on ball for 30 minutes and if no leaking of fluid pt to d/c home and to f/u in office 11/03/2021.
== END 2021-11-02 21:34 | disposition home or self-care (01) ==
LOC: ANHOBOP 20:26 → ANHLDR 11-13 10:12
PROVIDERS: PCP Family Medicine; Visit Provider Obstetrics & Gynecology
DX: O42.90 Premature rupture of membranes, unspecified as to length of time between rupture and onset of labor, unspecified weeks of gestation (principal); Z3A.00 Weeks of gestation of pregnancy not specified
CPT/HCPCS: 59025; 84112; 99199

== ENCOUNTER 2021-11-03 19:04 | Inpatient (IN) | payer OTHER, SELFPAY ==
[2021-11-03] VITALS (14 sets, daily range): BP systolic 114–130; BP diastolic 61–102; PULSE 80–105
--- OUTSIDE RECORDS SUMMARY | 2021-11-03 19:29 | XMS_ITS | Encounter Summary ---
:1995 Author Care Team Providers Name Role Phone Damon Santiago Primary Care Provider [phone] Reason for Visit None recorded. Assessment and Plan 1. Maternal obesity complicating , childbirth and the puerperium, antepartum ? US, obstetric, biophysical profile + non-stress test Discussion Note: None recorded.Patient educational handouts: No information available. Plan of Care Reminders Provider Appointments Induction Vilma Richardson, [facility] 11/05/2021 12:01AM ? Ob Routine Vilma Richardson, [facility] 11/08/2021 10:30AM ? Ob Routine Vilma Richardson, [facility] 11/15/2021 10:30AM Lab None recorded. ? ? Referral None recorded. ? ? Procedures None recorded. ? ? Surgeries None recorded. ? ? Imaging US, Obstetric, [facility] Biophysical Profile + 10/11/2021 Non-stress Test Medications Name Start Date ? ? pantoprazole 40 mg tablet,delayed release ? TAKE 1 TABLET BY MOUTH
--- OUTSIDE RECORDS SUMMARY | 2021-11-03 19:29 | XMS_ITS | Encounter Summary ---
:1995 Author Care Team Providers Name Role Phone Damon Santiago Primary Care Provider [phone] Reason for Visit None recorded. Assessment and Plan 1. Maternal obesity complicating , childbirth and the puerperium, antepartum ? US, obstetric, biophysical profile Discussion Note: None recorded.Patient educational handouts: No information available. Plan of Care Reminders Provider Appointments Induction Vilma Richardson [facility] 11/05/2021 12:01AM ? Ob Routine Vimla Richardson CNM 11/08/2021 10:30AM ? Ob Routine Vilma Richardson [facility] 11/15/2021 10:30AM Lab None recorded. ? ? Referral None recorded. ? ? Procedures None recorded. ? ? Surgeries None recorded. ? ? [facility] Bi[facility] Profile 10/26/2021 Medications Name Start Date ? ? pantoprazole 40 mg tablet,delayed release ? TAKE 1 TABLET BY MOUTH EVERY DAY
--- OUTSIDE RECORDS SUMMARY | 2021-11-03 19:29 | XMS_ITS | Encounter Summary ---
:1995 Author Care Team Providers Name Role Phone Damon Santiago Primary Care Provider [phone] Reason for Visit OB visit 38W3D Assessment and Plan 1. Routine care Discussion Note: None recorded.Patient educational handouts: No information available. Plan of Care Reminders Provider Appointments Induction Vilma Richardson, [facility] 11/05/2021 12:01AM ? Ob Routine Vilma Richardson [facility] 11/08/2021 10:30AM ? Ob Routine Vilma Richardson, [facility] 11/15/2021 10:30AM Lab None ? ? recorded. Referral None ? ? recorded. Procedures None ? ? recorded. Surgeries None ? ? recorded. Imaging None ? ? recorded. Medications Name Start Date ? ? pantoprazole 40 mg tablet,delayed release ? TAKE 1 TABLET BY MOUTH EVERY DAY Slow Fe 142 mg (45 mg iron) tablet,extended release ? Take 1 tablet twice a day by oral route. Medications Administered None recorded. Vitals Height Weight BMI Blood Pressure 5 ft 5 in 235 lbs 39.1 kg/m2 116/78 mm[Hg] Results Lab Results
--- OUTSIDE RECORDS SUMMARY | 2021-11-03 19:29 | XMS_ITS | Encounter Summary ---
:1995 Author Care Team Providers Name Role Phone Damon Santiago Primary Care Provider [phone] Reason for Visit OB visit Assessment and Plan Assessment Note Patient is ___weeks . Discu ssed plan. 1. Routine care Discussion Note: None recorded.Patient educational handouts: No information available. Plan of Care Reminders Provider Appointments Induction Vilma Richardson [facility] 11/05/2021 12:01AM ? Ob Routine Vilma Richardson [facility] 11/08/2021 10:30AM ? Ob Routine Vilma Richardson [facility] 11/15/2021 10:30AM Lab None ? ? [...] BMI Blood Pressure 5 ft 5 in 232 lbs 38.6 kg
--- OUTSIDE RECORDS SUMMARY | 2021-11-03 19:29 | XMS_ITS ---
:1995 Author Care Team Providers Name Role Phone YOANNA ARROYO Primary Care Provider [phone] Allergies Code Code System Name Reaction Severity Status Onset NKDA ? Medications Name Status Start Date Stop Date ? ? albuterol sulfate HFA 90 mcg/actuation Completed ? 10/18/2020 aerosol inhaler azithromycin 250 mg tablet Completed ? 10/18 cwxtfsepbk-zkkdkqpnrddyg-dvzfbblm 50 Completed ? 09/22/2021 mg-300 mg-40 mg capsule cephalexin 500 mg capsule Completed ? 2019 clindamycin HCl 300 mg capsule Completed ? 1 12/19/2019 COVID-19 test specimen collection Completed ? 10/04/2021 TEST DIRECTED dextrose 5 % and lactated ringers Completed ? 09/22/2021 intravenous solution Diclegis 10 mg-10 mg tablet,delayed release Unknown ? Not available Take 2 tablets by mouth every night at bedtime, add 1 tablet by mouth in AM in 2 days if needed famotidine 20 mg tablet Completed ? 04/07/20 21 hydrocodone 5 mg-acetaminophen 325 mg Completed ? 10/18/2020 tablet hydrocodone 7.5 mg-acetaminophen 325 mg Completed ? 10/18/2020 tablet ketorolac 10 mg tablet Completed ? 0 meloxicam 7.5 mg tablet Completed ? 10/18/20 20 metoclopramide 10 mg tablet Completed ? 04/05 metronidazole 0.75 % vaginal gel Completed ? 10/18/2020 metronidazole 500 mg tablet Completed ? 04/05 nitrofurantoin Completed ? 04/07/2021 monohydrate/macrocrystals 100 mg
--- OUTSIDE RECORDS SUMMARY | 2021-11-03 19:29 | XMS_ITS | Encounter Summary ---
:1995 Author Care Team Providers Name Role Phone Damon Santiago Primary Care Provider [phone] Reason for Visit None recorded. Assessment and Plan 1. Maternal obesity complicating , childbirth and the puerperium, antepartum ? non-stress test Discussion Note: None recorded.Patient educational handouts: No information available. Plan of Care Reminders Provider Appointments Induction Vilma Richardson [facility] 11/05/2021 12:01AM ? Ob Routine Vilma Richardson, [facility] 11/08/2021 10:30AM ? Ob Routine Vilma Richardson, [facility] 11/15/2021 10:30AM Lab None ? ? recorded. Referral None ? ? recorded. Procedures None ? ? recorded. Surgeries None ? ? recorded. Imaging Non-stress [place] Test 10/18/2021 Medications Name Start Date ? ? pantoprazole 40 mg tablet,delayed release ? TAKE 1 TABLET BY MOUTH EVERY DAY Slow Fe 142 mg (45 mg iron) tablet,extended release ? Take 1 tablet twice a day by oral route. Medications Administered None recorded. Vitals None recorded. Results
--- OUTSIDE RECORDS SUMMARY | 2021-11-03 19:29 | XMS_ITS | Encounter Summary ---
:1995 Author Care Team Providers Name Role Phone Damon Santiago Primary Care Provider [phone] Reason for Visit OB visit Assessment and Plan 1. Routine care Discussion Note: None recorded.Patient educational handouts: No information available. Plan of Care Reminders Provider Appointments Induction Vilma Richardson [facility] 11/05/2021 12:01AM ? Ob Routine Vilma Richardson [facility] 11/08/2021 10:30AM ? Ob Routine Vilma Richardson, [facility] 11/15/2021 10:30AM Lab None ? ? [...] BMI Blood Pressure 5 ft 5 in 233 lbs 38.8 kg/m2 116/72 mm[Hg] Results Lab Results None recorded.
--- OUTSIDE RECORDS SUMMARY | 2021-11-03 19:29 | XMS_ITS | Encounter Summary ---
:1995 Author Care Team Providers Name Role Phone Damon Santiago Primary Care Provider [phone] Reason for Visit None recorded. Assessment and Plan 1. Maternal obesity complicating , childbirth and the puerperium, antepartum ? non-stress test Discussion Note: None recorded.Patient educational handouts: No information available. Plan of Care Reminders Provider Appointments Induction Vilma Richardson [facility] 11/05/2021 12:01AM ? Ob Routine Vilma Richardson, [facility] 11/08/2021 10:30AM ? Ob Routine Vilma Richardson, [facility] 11/15/2021 10:30AM Lab None ? ? recorded. Referral None ? ? recorded. Procedures None ? ? recorded. Surgeries None ? ? recorded. Imaging Non-stress [place] Test 11/01/2021 Medications Name Start Date ? ? pantoprazole 40 mg tablet,delayed release ? TAKE 1 TABLET BY MOUTH EVERY DAY Slow Fe 142 mg (45 mg iron) tablet,extended release ? Take 1 tablet twice a day by oral route. Medications Administered None recorded. Vitals None recorded. Results
--- OUTSIDE RECORDS SUMMARY | 2021-11-03 19:29 | XMS_ITS | Encounter Summary ---
:1995 Author Care Team Providers Name Role Phone Damon Santiago Primary Care Provider [phone] Reason for Visit OB visit Assessment and Plan Assessment Note Patient is ___weeks . Discu ssed plan. 1. Routine care Discussion Note: None recorded.Patient educational handouts: No information available. Plan of Care Reminders Provider Appointments Induction Vilma Richardson [facility] 11/05/2021 12:01AM ? Ob Routine Vilma Richardson [facility] 11/08/2021 10:30AM ? Ob Routine Vilma Richardson [facility] 11/15/2021 10:30AM Lab None ? ? [...] BMI Blood Pressure 5 ft 5 in 234 lbs 38.9 kg
--- OUTSIDE RECORDS SUMMARY | 2021-11-03 19:29 | XMS_ITS | Encounter Summary ---
:1995 Author Care Team Providers Name Role Phone Damon Santiago Primary Care Provider [phone] Reason for Visit None recorded. Assessment and Plan 1. Maternal obesity complicating , childbirth and the puerperium, antepartum ? US, obstetric, follow-up ? US, obstetric, biophysical profile + non-stress test Discussion Note: None recorded.Patient educational handouts: No information available. Plan of Care Reminders Provider Appointments Induction Vilma Richardson, [facility] 11/05/2021 12:01AM ? Ob Routine Vilma Richardson, [facility] 11/08/2021 10:30AM ? Ob Routine Vilma Richardson, [facility] 11/15/2021 10:30AM Lab None recorded. ? ? Referral None recorded. ? ? Procedures None recorded. ? ? Surgeries None recorded. ? ? Imaging US, Obstetric, [place] Follow-up 11/01/2021 ? US, Obstetric, [place] Biophysical Profile + 11/01/2021 Non-stress Test
--- OUTSIDE RECORDS SUMMARY | 2021-11-03 19:29 | XMS_ITS | Encounter Summary ---
:1995 Author Care Team Providers Name Role Phone Damon Santiago Primary Care Provider [phone] Reason for Visit OB visit 36w3d Assessment and Plan 1. Routine care Discussion Note: None recorded.Patient educational handouts: No information available. Plan of Care Reminders Provider Appointments Induction Vilma Richardson, [facility] 11/05/2021 12:01AM ? Ob Routine Vilma Richardson [facility] 11/08/2021 10:30AM ? Ob Routine Vilma Richardson, [facility] 11/15/2021 10:30AM Lab None ? ? [...] 5 ft 5 in 232 lbs 38.6 kg/m2 101/55 mm[Hg] Results Lab Results
--- OUTSIDE RECORDS SUMMARY | 2021-11-03 19:29 | XMS_ITS | Encounter Summary ---
:1995 Author Care Team Providers Name Role Phone Damon Santiago Primary Care Provider [phone] Reason for Visit None recorded. Assessment and Plan 1. Maternal obesity complicating , childbirth and the puerperium, antepartum ? US, obstetric, biophysical profile + non-stress test Discussion Note: None recorded.Patient educational handouts: No information available. Plan of Care Reminders Provider Appointments Induction Vilma Richardson, [facility] 11/05/2021 12:01AM ? Ob Routine Vilma Richardson, [facility] 11/08/2021 10:30AM ? Ob Routine Vilma Richardson, [facility] 11/15/2021 10:30AM Lab None recorded. ? ? Referral None recorded. ? ? Procedures None recorded. ? ? Surgeries None recorded. ? ? Imaging US, Obstetric, [place] Biophysical Profile + 10/18/2021 Non-stress Test Medications Name Start Date ? ? pantoprazole 40 mg tablet,delayed release ? TAKE 1 TABLET BY MOUTH
--- OUTSIDE RECORDS SUMMARY | 2021-11-03 19:29 | XMS_ITS | Encounter Summary ---
:1995 Author Care Team Providers Name Role Phone Damon Santiago Primary Care Provider [phone] Reason for Visit OB visit OB [id number] EDC 11/12/2021 LMP 02/09/2021 Assessment and Plan Assessment Note Patient is _37__weeks . Dis cussed plan. 1. Routine care Discussion Note: None recorded.Patient educational handouts: No information available. Plan of Care Reminders Provider Appointments Induction Vilma Richardson [facility] 11/05/2021 12:01AM ? Ob Routine Vilma Richardson [facility] 11/08/2021 10:30AM ? Ob Routine Vilma Richardson [facility] 11/15/2021 10:30AM Lab None ? ? recorded. [...]
--- OUTSIDE RECORDS SUMMARY | 2021-11-03 19:29 | XMS_ITS | Encounter Summary ---
:1995 Author Care Team Providers Name Role Phone Damon Santiago Primary Care Provider [phone] Reason for Visit None recorded. Assessment and Plan 1. Maternal obesity complicating , childbirth and the puerperium, antepartum ? US, obstetric, follow-up ? US, obstetric, biophysical profile + non-stress test Discussion Note: None recorded.Patient educational handouts: No information available. Plan of Care Reminders Provider Appointments Induction Vilma Richardson, [facility] 11/05/2021 12:01AM ? Ob Routine Vilma Richardson, [facility] 11/08/2021 10:30AM ? Ob Routine Vilma Richardson, [facility] 11/15/2021 10:30AM Lab None recorded. ? ? Referral None recorded. ? ? Procedures None recorded. ? ? Surgeries None recorded. ? ? Imaging US, Obstetric, [place] Follow-up 10/04/2021 ? US, Obstetric, [place] Biophysical Profile + 10/04/2021 Non-stress Test
--- OUTSIDE RECORDS SUMMARY | 2021-11-03 19:29 | XMS_ITS | Encounter Summary ---
:1995 Author Care Team Providers Name Role Phone Damon Santiago Primary Care Provider [phone] Reason for Visit None recorded. Assessment and Plan 1. Uterine size for dates discre pancy ? US, obstetric, follow-up Discussion Note: None recorded.Patient educational handouts: No information available. Plan of Care Reminders Provider Appointments Induction Vilma Richardson, [facility] 11/05/2021 12:01AM ? Ob Routine Vilma Richardson, [facility] 11/08/2021 10:30AM ? Ob Routine Vilma Richardson, [facility] 11/15/2021 10:30AM Lab None ? ? recorded. Referral None ? ? recorded. Procedures None ? ? recorded. Surgeries None ? ? recorded. Imaging US, [place] Obstetric, Follow-up 09/08/2021 Medications Name Start Date ? ? pantoprazole 40 mg tablet,delayed release ? TAKE 1 TABLET BY MOUTH EVERY DAY Slow Fe 142 mg (45 mg iron) tablet,extended release ? Take 1 tablet twice a day by oral route. Medications Administered None recorded. Vitals None recorded. Results Lab Results
--- OUTSIDE RECORDS SUMMARY | 2021-11-03 19:29 | XMS_ITS | Encounter Summary ---
:1995 Author Care Team Providers Name Role Phone Damon Santiago Primary Care Provider [phone] Reason for Visit None recorded. Assessment and Plan 1. Maternal obesity complicating , childbirth and the puerperium, antepartum ? non-stress test Discussion Note: None recorded.Patient educational handouts: No information available. Plan of Care Reminders Provider Appointments Induction Vilma Richardson [facility] 11/05/2021 12:01AM ? Ob Routine Vilma Richardson, [facility] 11/08/2021 10:30AM ? Ob Routine Vilma Richardson, [facility] 11/15/2021 10:30AM Lab None ? ? recorded. Referral None ? ? recorded. Procedures None ? ? recorded. Surgeries None ? ? recorded. Imaging Non-stress [place] Test 10/11/2021 Medications Name Start Date ? ? pantoprazole 40 mg tablet,delayed release ? TAKE 1 TABLET BY MOUTH EVERY DAY Slow Fe 142 mg (45 mg iron) tablet,extended release ? Take 1 tablet twice a day by oral route. Medications Administered None recorded. Vitals None recorded. Results
--- OUTSIDE RECORDS SUMMARY | 2021-11-03 19:29 | XMS_ITS | Encounter Summary ---
:1995 Author Care Team Providers Name Role Phone Damon Santiago Primary Care Provider [phone] Reason for Visit None recorded. Assessment and Plan 1. Maternal obesity complicating , childbirth and the puerperium, antepartum ? non-stress test Discussion Note: None recorded.Patient educational handouts: No information available. Plan of Care Reminders Provider Appointments Induction Vilma Richardson [facility] 11/05/2021 12:01AM ? Ob Routine Vilma Richardson, [facility] 11/08/2021 10:30AM ? Ob Routine Vilma Richardson, [facility] 11/15/2021 10:30AM Lab None ? ? recorded. Referral None ? ? recorded. Procedures None ? ? recorded. Surgeries None ? ? recorded. Imaging Non-stress [place] Test 10/26/2021 Medications Name Start Date ? ? pantoprazole 40 mg tablet,delayed release ? TAKE 1 TABLET BY MOUTH EVERY DAY Slow Fe 142 mg (45 mg iron) tablet,extended release ? Take 1 tablet twice a day by oral route. Medications Administered None recorded. Vitals None recorded. Results
--- OUTSIDE RECORDS SUMMARY | 2021-11-03 19:30 | XMS_ITS | Encounter Summary ---
:1995 Author Care Team Providers Name Role Phone Damon Santiago Primary Care Provider [phone] Reason for Visit OB visit Assessment and Plan Assessment Note Patient is ___weeks . Discu ssed plan. 1. Uterine size for dates discre pancy ? US, obstetric, 3rd trimest er ? TSH, serum or plasma Discussion Note: None recorded.Patient educational handouts: No information available. Plan of Care Reminders Provider Appointments Induction Vilma Richardson [facility] 11/05/2021 12:01AM ? Ob Routine Vilma Richardson [facility] 11/08/2021 10:30AM ? Ob Routine Vilma Richardson [facility] 11/15/2021 10:30AM Lab TSH, Serum or [facility] [place] Plasma 08/25/2021 Hospital (Lab) Referral None ? ? recorded. Procedures None ? ? recorded. Surgeries None ? ? recorded. Imaging US, [place] Obstetric, 3Rd 08/25/2021 Trimester Medications Name Start Date ? ? pantoprazole 40 mg tablet,delayed release ? TAKE 1 TABLET BY MOUTH EVERY DAY
--- NOTE | 2021-11-03 19:51 | PM.IMHP ---
H&P: HPI History of Present Illness Date/Time: 11/03/21 19:51 26 y/o @ 38w5d here with srom. Chief Complaint: SROM Review of Systems Review of Systems: All systems reviewed & are unremarkable except as noted in HPI and below Constitutional: Constitutional: Reports as per HPI and Reports no additional constitutional complaints Eyes: Eyes: Reports as per HPI ENT: Reports system reviewed and no additional complaints, except as documented Cardiovascular: Cardiovascular: Reports as per HPI Respiratory: Respiratory: Reports as per HPI Gastrointestinal: Gastrointestinal: Reports as per HPI Genitourinary: Genitourinary: Reports no additional female genitourinary complaints Musculoskeletal: Musculoskeletal: Reports no additional musculoskeletal complaints Integumentary/Breasts: Skin/Breast: Reports system reviewed and no additional complaints, except as docu Neurologic: Reports system reviewed and no additional complaints, except as documented Psychiatric: Psychiatric: Reports no additional psychiatric complaints Endocrine: Endocrine: Reports no additional endocrine complaints Hematologic/Lymphatic: Hematologic/Lymphatic: Reports no additional hematologic/lymphatic complaints Allergic/Immunologic: Allergic/Immunologic: Reports no additional allergic/immunologic complaints [facility] Past Medical History Medical History (Updated 11/03/21 @ 19:52 by LULU Espinoza) Hyperemesis gravidarum Surgical History Surgical History No pertinent past surgical history Family History Family History Mother No pertinent past medical history Social History Social History Smoking status: Never smoker Substance use: never Gender identity (if verbalized by the patient): Female Sexual Orientation (if Verbalized by the Patient): Straight or Heterosexual Spiritual care concerns: No Meds Home Medications and Allergies Home Medications Medication Instructions Recorded Confirmed Type PNV cmb#95-ferrous fumarate-FA 1 tablet PO DAILY 04/16/21 10/25/21 History [] albuterol sulfate [ProAir HFA] 90 mcg INHALATION PRN PRN 05/02/21 10/25/21 History famotidine [Pepcid AC] 10 mg PO DAILY 05/02/21 10/25/21 History Allergies Allergy/AdvReac Type Severity Reaction Status Date / Time No Known Allergies Allergy Verified 04/12/21 19:30 Vital Signs Vital Signs - 24 hr 11/03/21 19:30 11/03/21 19:45 Pulse Rate 90 87 Blood Pressure 125/65 129/61 Exam Const: General: cooperative and healthy appearing Orientation/consciousness: oriented to person, oriented to place, oriented to time and patient oriented x3 Limitations: no limitations HENMT: Head: normal to inspection Ears: hearing grossly normal bilaterally General nose exam: Normal external nose present Face and sinus: normal facial exam Mouth: Yes Normal oral and palatal mucosa present Teeth and gingiva: dentition normal Throat: posterior oropharynx normal Eyes: General: appearance normal, both eyes and all related structures Neck: Neck: normal visual inspection Thyroid: thyroid normal Chest: Chest palpation & inspection: normal inspection of the chest Resp: Effort & Inspection: normal respiratory effort Auscultation: clear to auscultation bilaterally Cardio: Rate: regular rate Rhythm: regular rhythm GI: Inspection: normal to inspection : General: Yes bimanual renal exam normal bilaterally Skin: General skin exam: normal color and no rashes or lesions noted Neuro: General: oriented to person, oriented to place, oriented to time and patient oriented x3 Extrem: General: normal to inspection Psych: Mental Status: mental status grossly normal Assessment and Plan Assessment and plan (1) Spontaneous rupture of amniotic membranes: S
[2021-11-03 20:16] LABS: Basophils Percent Auto 0.5 % (0.2-1.2); Eosinophils Percent Auto 0.5 % (0-4.4); Hematocrit 28.5 % (37.0-47.0); Hemoglobin 9.5 g/dL (12.0-15.0); Immature Granulocyte Absolute 0.03 K/mm3 (0.00-0.031); Immature Granulocyte Percent A 0.5 % (0-0.5); Lymphocytes Absolute Auto 1.13 K/mm3 (0.9-3.2); Lymphocytes Percent Auto 18.1 % (18.3-44.2); Mean Corpuscular HGB Conc 33.3 g/dl (32-36); Mean Corpuscular Hemoglobin 30.4 pg (26-34); Mean Corpuscular Volume 91.3 fl (80-100); Mean Platelet Volume 11.5 fl (7.4-10.4); Monocytes Absolute Auto 0.6 K/mm3 (0.1-0.6); Monocytes Percent Auto 9.9 % (2.6-8.5); Neutrophils Absolute Auto 4.4 K/mm3 (1.3-6.7); Neutrophils Percent Auto 70.5 % (45.5-73.1); Platelet Count Result 175 k/mm3 (150-375); Red Blood Count 3.12 M/mm3 (4.2-5.4); Red Cell Distribution Width 14.7 % (11.5-14.5); White Blood Count 6.2 K/mm3 (4.5-10.0)
[2021-11-03] MEDS: LACTATED RINGERS 1,000 ML 125 ML IV CONT (20:21)
[2021-11-03] MEDS: OXYTOCIN 30 UNITS/NS 500 ML 30 UNITS/500 ML BAG IV CONT (20:22)
--- NOTE | 2021-11-03 21:20 | WPDANESEPP ---
Anes - Eval Pre Procedure Procedure: labor epidural Date/Time: 11/03/21 21:20 Surgeon: nehemiah Preop Diagnosis: pain during labor Pre Op Diagnosis: SROM Patient Data Age: 26 Gender: F Height: Weight: Last Vital Signs Pulse 91 11/03/21 21:15 BP 122/71 11/03/21 21:15 Allergies Allergy/AdvReac Type Severity Reaction Status Date / Time No Known Allergies Allergy Verified 04/12/21 19:30 Home Medications Medication Instructions Recorded Confirmed Type PNV cmb#95-ferrous fumarate-FA 1 tablet PO DAILY 04/16/21 10/25/21 History [] albuterol sulfate [ProAir HFA] 90 mcg INHALATION PRN PRN 05/02/21 10/25/21 History famotidine [Pepcid AC] 10 mg PO DAILY 05/02/21 10/25/21 History Laboratory Tests 11/03/21 11/03/21 20:05 20:05 WBC 6.2 K/mm3 K/mm3 (4.5-10.0) RBC 3.12 M/mm3 L M/mm3 (4.2-5.4) Hgb 9.5 g/dL L g/dL (12.0-15.0) Hct 28.5 % L % (37.0-47.0) MCV 91.3 fl fl (80-100) MCH 30.4 pg pg (26-34) MCHC 33.3 g/dl g/dl (32-36) RDW 14.7 % H % (11.5-14.5) Plt Count 175 k/mm3 k/mm3 (150-375) MPV 11.5 fl H fl (7.4-10.4) Immature Gran % (Auto) 0.5 % % (0-0.5) Neut % (Auto) 70.5 % % (45.5-73.1) Lymph % (Auto) 18.1 % L % (18.3-44.2) [place] % (Auto) 9.9 % H % (2.6-8.5) Eos % (Auto) 0.5 % % (0-4.4) Baso % (Auto) 0.5 % % (0.2-1.2) Lymph # (Auto) 1.13 K/mm3 K/mm3 (0.9-3.2) [place] # (Auto) 0.6 K/mm3 K/mm3 (0.1-0.6) Eos # (Auto) 0.0 K/mm3 K/mm3 (0-0.3) Baso # (Auto) 0.0 K/mm3 K/mm3 (0.0-0.1) Abs Immat Gran (auto) 0.03 K/mm3 K/mm3 (0.00-0.031) Absolute Neuts (auto) 4.4 K/mm3 K/mm3 (1.3-6.7) Absolute Nucleated RBC 0.0 K/mm3 K/mm3 (0.0-0.012) Nucleated RBC % 0.0 % % (0.0-0.2) RPR Pending Patient hx anesthesia problems: none Family hx anesthesia problems: none Results Review: All pre-operative results and documents have been reviewed as part of the pre-operative evaluation. [facility] Past Medical History Medical History (Updated 11/03/21 @ 21:21 by Nivia Lopez CRNA) Asthma Hyperemesis gravidarum IUP (intrauterine ), incidental Surgical History Surgical History No pertinent past surgical history Family History Family History Mother No pertinent past medical history Social History Social History Smoking status: Never smoker Substance use: never Gender identity (if verbalized by the patient): Female Sexual Orientation (if Verbalized by the Patient): Straight or Heterosexual Spiritual care concerns: No Exam Day of Procedure 11/03/21 21:20
--- NOTE | 2021-11-03 23:12 | LDADM ---
This patient, Tristan Ferrari, was admitted to Labor/Delivery/Recovery 108 on 11/03/21 at 19:04. Plans for labor, pain management and were discussed with patient. Patient/family oriented to hospital policies and general routines including ID bracelet, bed and alarms, visiting hours, pain management, procedures, bathroom and other care routines, personal items, smoking policy, room service/diet and guest tray routines, infant security routines, and visiting hours. Patient/Family are encouraged to report perceived risks to care and to ask questions if they do not understand what they are told or what they should do. See OBIX for further documentation.
[2021-11-04] VITALS (93 sets, daily range): BP systolic 82–136; BP diastolic 52–111; PULSE 25–116; RESP 16–18; TEMP 36.7–37.2; O2SAT 90–100
[2021-11-04 05:36] LABS: Amphetamine Screen Urine Negative (Negative); Barbiturate Screen Urine Negative (Negative); Benzodiazepines Screen Urine Negative (Negative); Cannabinoid Screen Urine Negative (Negative); Cocaine Screen Urine Negative (Negative); Methadone Screen Urine Negative (Negative); Opiate Screen Urine Negative (Negative); Phencyclidine Screen Urine Negative (Negative)
--- NOTE | 2021-11-04 08:10 | PM.OBPRVD ---
OB - Delivery Note Procedure Delivery date: 11/04/21 Intrapartal events: None Induction method: none Delivery augmentation: pitocin Delivery monitor: external FHT and external uterine Route of delivery: Episiotomy description: None Laceration Description: None Quantitative Blood Loss (ml): 104 Anesthesia type: Epidural Narrative: Mother and baby in stable condition. Cord segment given to staff for collection. [place] Baby Date of : 11/04/21 Weeks of gestation at delivery: 38 presentation: vertex position: Left Occiput Anterior Placenta delivery description: Spontaneous cord vessel description: 3 Vessels and Delayed Cord Clamping
[2021-11-04] MEDS: OXYTOCIN 30 UNITS/NS 500 ML 30 UNITS/500 ML BAG 125 UNITS IV CONT (08:30)
--- NOTE | 2021-11-04 12:18 | PC.NURSE ---
Patient transferred to post room #292 via wheelchair. Support person present. Oriented to unit, room, information board, rooming in, admission packet and security measures. Patient verbalizes understanding.
--- NOTE | 2021-11-04 14:00 | PC.NURSE ---
Consult with pt., mother wishes to pump and bottle feed. Breast pump provided due to mother's wishes. Instructions given on breast pump care and usage, pumping schedule, nipple care, and collection and storage of breast milk. Encouraged [id number], breast massage and manual expression to stimulate supply. Assessed patient for correct flange size, placement and draw. Patient verbalizes and demonstrates understanding of instructions. Discussed colostrum vs milk supply and mother may not see more than a few drops the first few days, milk should transition in by day 3 and she may see more volume pumped per session.
[2021-11-04] MEDS: IBUPROFEN 600 MG TABLET PO ×2 (15:55→21:31)
[2021-11-04] MEDS: DOCUSATE SODIUM 100 MG CAPSULE PO (15:56)
[2021-11-04] MEDS: POLYSACCHARIDE IRON COMPLEX 150 MG CAPSULE PO (15:56)
[2021-11-05 00:04] VITALS: BP 120/68; PULSE 76; RESP 18; TEMP 37
[2021-11-05] MEDS: IBUPROFEN 600 MG TABLET PO (02:32)
[2021-11-05] MEDS: ACETAMINOPHEN 325 MG TABLET 650 MG PO (02:32)
[2021-11-05 04:30] VITALS: BP 118/65; PULSE 85; RESP 16; TEMP 37.2
[2021-11-05 04:47] LABS: Hematocrit 25.6 % (37.0-47.0); Hemoglobin 8.5 g/dL (12.0-15.0)
--- NOTE | 2021-11-05 09:42 | PM.OBPNVD ---
OB - PN: Subj Subjective Date/time seen: 11/05/21 09:42 Patient comments: no complaints baby status: doing well OB - PN: Obj Data Labs CBC & Chem 7: 11/05/21 04:30 Labs: Laboratory Results - last 24 hr 11/05/21 11/05/21 04:30 04:31 Hgb 8.5 L Hct 25.6 L Blood Type O Negative Antibody Screen Negative OB - PN A/P Plan day: 1 Plan: routine care Time Spent With Patient Time: Total time spent is greater than 50% in coordination of care (as documented) at patient's floor/unit and/or counseling patient: Time with patient: less than 15 minutes Review of Systems Review of Systems: All systems reviewed & are unremarkable except as noted in HPI and below Exam Narrative: Fundus firm and vaginal flow controlled. No lower ext redness, warmth, or edema. Negative homans. Const: General: comfortable Chest: Breast/axilla inspection: normal inspection of the breasts Resp: Effort & Inspection: normal respiratory effort Cardio: Rate: regular rate GI: GI Palp: Yes Soft to palpation Psych: Appearance: grossly normal Affect: normal affect Attitude: cooperative Thought content: Yes Normal thought content present Judgement: Good judgement present (Psych)
--- NOTE | 2021-11-05 09:44 | P.DS_ITS ---
DS: Admitting Diagnosis Discharge Date 11/05/20 Admitting Diagnosis 11/03/21 OB - DS: Summary OB Procedures : None OB Procedures Intrapartum: Spontaneous Vag Delivery OB Procedures: : None Time Spent with Patient Time attestation: Total time spent providing and/or coordinating discharge services: DS: Data Data Completed and Pending Labs on day of discharge: Labs from last 24 hours 11/05/21 11/05/21 04:31 04:30 Hgb 8.5 L Hct 25.6 L Blood Type O Negative Antibody Screen Negative Screen Pending Baby's Blood Type Pending Baby's CHANDLER Pending Doses of RhIg Required Pending Discharge Plan Discharge Attending physician on discharge: Vilma Richardson Discharging Clinician: Vilma Richardson Patient Disposition: Home, Self-Care Activity: pelvic rest Diet: as tolerated Patient Instructions: Antibiotic Form Stand Alone Forms: General Discharge Information Follow-up/Referrals: Vilma Richardson, CNM [Certified Nurse Director Social Welfare] - Discharge Medications: New polysaccharide iron complex 150 mg iron Capsule 150 mg PO BIDWM Qty: 60 RF: 0 Continued PNV cmb#95-ferrous fumarate-FA [] 28 mg iron- 800 mcg Tablet 1 tablet PO DAILY RF: 0 famotidine [Pepcid AC] 10 mg Tablet 10 mg PO DAILY RF: 0 albuterol sulfate [ProAir HFA] 90 mcg/actuation Hfa Aerosol Inhaler 90 mcg INHALATION PRN PRN (Reason: Shortness Of Breath) RF: 0 Date of admission: 11/03/21 19:04 Primary Care Provider: Aliya,Damon Mixon Admitting Provider: Glenis Pineda Attending physician on admission: Glenis Pineda Condition: Stable
[2021-11-05 10:30] VITALS: BP 117/54; PULSE 77; RESP 18; TEMP 36.9
[2021-11-05] MEDS: DOCUSATE SODIUM 100 MG CAPSULE PO (10:35)
[2021-11-05] MEDS: TETANUS,DIPHTHERIA,AC PERTUSSIS ADULT (0.5 ML) BOOSTRIX IM (10:35)
[2021-11-05] MEDS: MULTIVIT/MIN/PREN/FOL AC/IRON TABLET 1 TAB PO (10:35)
[2021-11-05] MEDS: POLYSACCHARIDE IRON COMPLEX 150 MG CAPSULE PO (10:35)
[2021-11-05] MEDS: RHO(D) IMMUNE GLOBULIN 300 MCG/2 ML SYRINGE IM (11:57)
[2021-11-07 09:28] LABS: Rapid Plasma Reagin Non-Reactive (NonReactive)
== END 2021-11-05 14:42 | disposition home or self-care (01) | DRG 560 ==
LOC: ANHLDR 19:35 → ANHOB2 11-04 13:36
PROVIDERS: Advanced Practice Midwife; Admitting Provider Obstetrics & Gynecology; PCP Family Medicine; Visit Provider Obstetrics & Gynecology
DX: O99.02 Anemia complicating childbirth (principal); Z37.0 Single live birth; Z3A.38 38 weeks gestation of pregnancy; D64.9 Anemia, unspecified; O99.52 Diseases of the respiratory system complicating childbirth; J45.909 Unspecified asthma, uncomplicated
CPT/HCPCS: 36415; 80307; 85014; 85018; 85025; 85461; 86592; 86850; 86900; 86901; 90384; 90715; A9270; J2590; J2790; J2795; J7120

== ENCOUNTER 2023-11-01 10:39 | Emergency (ER) | payer OTHER, SELFPAY ==
--- NOTE | ~2023-11-01 | US_ITS ---
EXAMINATION: US OB <=14 wk fetus w TV DATE: 11/01/2023 13:54 INDICATION: Pelvic pain. Abnormal uterine bleeding. Positive test in September. Negative pre gnancy test today. TECHNIQUE: Real-time transabdominal and transvaginal pelvic ultrasound was performed. COMPARISON: None. FINDINGS: TRANSABDOMINAL ULTRASOUND: The uterus measures 9.1 x 4.8 x 4.5 cm. TRANSVAGINAL ULTRASOUND: There is no intrauterine gestational sac. The endometrial complex measures 9 mm in thickness. The right ovary measures 3.1 x 1.3 x 2.1 cm. The left ovary measures 2.6 x 1.7 x 2. 0 cm. There is no free fluid in the pelvis. IMPRESSION: 1. Normal pelvis. No retained products of conception. Reviewed, dictated and finalized at location A. [employer]
[2023-11-01 10:55] VITALS: BP 151/59; PULSE 84; RESP 18; TEMP 36.1; O2SAT 100
[2023-11-01 11:10] LABS: Basophils Percent Auto 0.5 % (0.2-1.2); Eosinophils Percent Auto 0.4 % (0-4.4); Hematocrit 36.5 % (37.0-47.0); Hemoglobin 11.4 g/dL (12.0-15.0); Immature Granulocyte Absolute 0.01 K/mm3 (0.00-0.031); Immature Granulocyte Percent A 0.2 % (0-0.5); Lymphocytes Percent Auto 28.5 % (18.3-44.2); Mean Corpuscular HGB Conc 31.2 g/dl (32-36); Mean Corpuscular Hemoglobin 28.1 pg (26-34); Mean Corpuscular Volume 89.9 fl (80-100); Monocytes Absolute Auto 0.6 K/mm3 (0.1-0.6); Monocytes Percent Auto 9.8 % (2.6-8.5); Neutrophils Absolute Auto 3.4 K/mm3 (1.3-6.7); Neutrophils Percent Auto 60.6 % (45.5-73.1); Platelet Count Result 241 k/mm3 (150-375); Red Blood Count 4.06 M/mm3 (4.2-5.4); Red Cell Distribution Width 13.6 % (11.5-14.5); White Blood Count 5.6 K/mm3 (4.5-10.0)
[2023-11-01 11:41] VITALS: BP 105/73; BP 114/56; BP 115/66; PULSE 68; PULSE 70; PULSE 72
[2023-11-01 11:41] LABS: Beta HCG Quantitative < 2.39 mIU/ML
[2023-11-01 11:42] VITALS: BP 121/51; PULSE 66; RESP 17; O2SAT 100
--- NOTE | 2023-11-01 12:34 | ED.FEMALEGU ---
HPI - Female Genitourinary General Chief complaint: Vaginal Bleeding Stated complaint: /vb Time Seen by Provider: 11/01/23 11:52 Source: patient Mode of arrival: ambulatory Limitations: no limitations History of Present Illness HPI Narrative: This is a 28 year old female that presents to the ER for AUB. Reports her LMP was August 19. Reports a positive test in the end of September. Reports she started to have spotting a couple days ago and is now having bleeding with cramping. Denies fevers or dysuria. Related Data Home Medications Medication Instructions Recorded Confirmed vit no.95-ferrous 1 tablet PO DAILY 04/16/21 10/25/21 fumarate 28 mg-folic acid 800 mcg tablet () albuterol sulfate 90 mcg/actuation 90 mcg inhalation PRN PRN 05/02/21 10/25/21 aerosol inhaler (ProAir HFA) Shortness Of Breath famotidine 10 mg tablet (Pepcid AC) 10 mg PO DAILY 05/02/21 10/25/21 Allergies Allergy/AdvReac Type Severity Reaction Status Date / Time No Known Allergies Allergy Verified 11/01/23 10:58 Review of Systems Review of Systems: CONSTITUTIONAL: Denies fever GASTROINTESTINAL: Reports pelvic cramping GENITOURINARY: Denies dysuria All systems reviewed & are unremarkable except as noted in HPI and below PMFSH Past Medical History Medical History (Updated 11/01/23 @ 14:36 by Carolina Zhu PA-C) Asthma Hyperemesis gravidarum IUP (intrauterine ), incidental Surgical History Surgical History No pertinent past surgical history Family History Family History Mother No pertinent past medical history Social History Social History Smoking status: Unknown if ever smoked Second hand tobacco smoke exposure: Yes Substance use: never Gender identity (if verbalized by the patient): Female Sexual Orientation (if Verbalized by the Patient): Straight or Heterosexual Spiritual care concerns: No Exam Narrative: GENERAL: Well-appearing, well-nourished, and in no acute distress. HEAD: Normocephalic, atraumatic. EYES: EOMI. CHEST: Clear to auscultation. No respiratory distress. No wheezes rales or rhonchi HEART: Regular rate and rhythm. No murmur heard. Normal peripheral pulses. ABDOMEN: Soft, nontender, nondistended, normal active bowel sounds. EXTREMITIES: Normal range of motion. No edema. SKIN: Warm, dry, no rash. NEURO: No focal deficits. Alert and oriented x3. PSYCH: Normal mood and affect Course Course Emergency Course: Patient updated on workup and agrees with plan of care Consultations Consultation #1: Spoke with Dr. Bustamante about patient and workup. No recommendation for Rhogam at this time. She may follow up in clinic Date: 11/01/23 Vital Signs Vital signs: Vital Signs Temperature 96.9 F L 11/01/23 10:55 Pulse Rate 84 11/01/23 10:55 Respiratory Rate 18 11/01/23 10:55 Blood Pressure 151/59 H 11/01/23 10:55 Pulse Oximetry 100 11/01/23 10:55 Oxygen Delivery Room Air 11/01/23 10:55 Temperature 96.9 F L 11/01/23 10:55 Pulse Rate 63 11/01/23 14:04 Respiratory Rate 16 11/01/23 14:04 Blood Pressure 129/71 11/01/23 14:04 Pulse Oximetry 100 11/01/23 14:04 Oxygen Delivery Room Air 11/01/23 10:55 MDM - Female Genitourinary MDM Narrative Medical decision making narrative: This is a 28-year-old female that presents to the emergency department for abnormal uterine bleeding. Reporting a positive test in the end of September with LMP of August 19. Her vitals are stable. CBC shows normocytic anemia with hemoglobin 11.4, which appears to be around her baseline. Quantitative HCG <2.39. Pelvic ultrasound is normal. Spoke with Dr. Bustamante about patient and workup. No recommendation for Rhogam at this time. She may follow up i
[2023-11-01 14:04] VITALS: BP 129/71; PULSE 63; RESP 16; O2SAT 100
[2023-11-01 14:49] VITALS: BP 114/59; PULSE 61; RESP 17; O2SAT 100
== END 2023-11-01 14:53 | disposition home or self-care (01) ==
PROVIDERS: Emergency Medicine; Emergency Provider Physician Assistant; PCP Family Medicine
DX: N93.9 Abnormal uterine and vaginal bleeding, unspecified (principal); J45.909 Unspecified asthma, uncomplicated; Z77.22 Contact with and (suspected) exposure to environmental tobacco smoke (acute) (chronic)
CPT/HCPCS: 36415; 76801; 76817; 84702; 85025; 85461; 86850; 86900; 86901; 99284